=== PATIENT | male | born 2000 | race Caucasian/White ===

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

== ENCOUNTER 2019-06-12 02:12 | Emergency (ER) | payer SELFPAY ==
[~2019-06-12] VITALS: Ht 170 cm; Wt 117.2 kg
[2019-06-12] MEDS ORDERED: LACTATED RINGERS 1,000 ML IV STA (02:35)
--- NOTE | 2019-06-12 02:43 | ED GI ---
General Stated Complaint: FEVER 101.,VOMITING,DIARRHEA Source of Information: Patient History of Present Illness Date Seen by Provider: Jun 12, 2019 Time Seen by Provider: 02:27 Initial Comments PT ARRIVES VIA POV FROM HOME STATES HE BEGAN RUNNING FEVER AROUND NOON--HAS BEEN UP TO 101 HAS NOT TAKEN ANYTHING FOR FEVER BEGAN HAVING NAUSEA/VOMITING/DIARRHEA AROUND 1700 TONIGHT HAS VOMITED X 5 HAS HAD DIARRHEA X 4-5 NO ABDOMINAL PAIN VOIDING A NORMAL AMOUNT--LAST VOID AROUND 1800 HAS BEEN ABLE TO DRINK FLUIDS, HAS HAD DECREASED APPETITE, BUT HAS BEEN ABLE TO EAT C/O MILD SORE THROAT NO SICK CONTACTS OR SUSPICIOUS FOODS NO HISTORY OF GI PROBLEMS PCP: DR. RODRIGUEZ PSYCH: [facility] Allergies and Home Medications Allergies Coded Allergies: No Known Drug Allergies (Unverified , 06/12/19) Home Medications Lactobacillus Acidophilus 1 Each Capsule, 2 EACH PO QID Prescribed by: MARCIA MAYEN on 06/12/19 0505 Ondansetron 4 Mg Tab.rapdis, 4 MG PO Q6H PRN for NAUSEA/VOMITING-1ST LINE Prescribed by: VU DOSHI on 09/18/18 191 Ondansetron 4 Mg Tab.rapdis, 4 MG PO Q4H Prescribed by: MARCIA MAYEN on 06/12/19 0505 Patient Home Medication List Home Medication List Reviewed: Yes Review of Systems Review of Systems Constitutional: see HPI, fever EENTM: See HPI, Throat Pain Respiratory: No Symptoms Reported Cardiovascular: No Symptoms Reported Gastrointestinal: See HPI; Denies Abdominal Pain; Diarrhea, Nausea, Poor Appetite; Denies Poor Fluid Intake; Vomiting Genitourinary: No Symptoms Reported Musculoskeletal: no symptoms reported Skin: no symptoms reported Psychiatric/Neurological: No Symptoms Reported Endocrine: No Symptoms Reported Hematologic/Lymphatic: No Symptoms Reported Past Gzijyqw-Kfmroq-Lvdzyj Hx Past Med/Social Hx: Reviewed and Corrections made Patient Social History Alcohol Use: Occasionally Uses Recreational Drug Use: Yes (THC) Drug of Choice: THC Smoking Status: Current Everyday Smoker (1 PPD) Type Used: Cigarettes 2nd Hand Smoke Exposure: Yes Recent Foreign Travel: No Contact w/Someone Who Travel: No Recent Hopitalizations: No Immunizations Up To Date PED Vaccines UTD: Yes Date of Influenza Vaccine: Jun 05, 2012 Seasonal Allergies Seasonal Allergies: Yes Past Medical History Surgeries: Yes (HERNIA REPAIR) Abdominal Respiratory: Yes (ASTHMA CHILD) Asthma Cardiac: No Neurological: No Genitourinary: No Gastrointestinal: Yes (HERNIA REPAIR) Abdominal Hernia Musculoskeletal: No Endocrine: Yes (HYPOGLYCEMIA; OBESITY) HEENT: No Cancer: No Psychosocial: Yes Anxiety, Bipolar, Depression Integumentary: No Blood Disorders: No Family Medical History No Pertinent Family Hx Physical Exam Vital Signs Vital Signs - First Documented 06/12/19 02:18 Temp 36.7 Pulse 89 Resp 20 B/P (MAP) 173/107 (129) Pulse Ox 98 O2 Delivery Room Air Capillary Refill : Height/Weight/BMI Height: 5'7.00" Weight: 240lbs. oz. 108.597178np; 35.15 BMI Method:Stated General Appearance: no apparent distress, obese, other (SMILING, TALKATIVE, WALKS UPRIGHT AND MOVES WITHOUT DIFFICULTY. 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, no motor/sensory deficits, alert, normal mood/affect, oriented x 3 Skin: normal color, warm/dry, tattoos/piercings (TATTOOS) Progress/Results/Core Measures Results/Orders Lab Results Laboratory Tests Test 06/12/19 02:25 06/12/19 02:45 06/12/19 02:50 Range/Units Group A Streptococcus Screen NEGATIVE NEGATIVE White Blood Count 8.9 4.3-11.0 10^3/uL Red Blood Count 5.09 4.35-5.85 10^6/uL Hemoglobin 15.8 13.3-17.7 G/DL Hematocrit 45 40-54 % Mean Corpuscular Volume 89 80-99 FL Mean Corpuscular Hemoglobin 31 25-34 PG Mean Corpuscular Hemoglobin Concent 35 32-36 G/DL Red Cell Distribution Width 13.1 10.0-14.5 % Platelet Count 174 130-400 10^3/uL Mean Platelet Volume 11.6 H 7.4-10.4 FL Neutrophils (%) (Auto) 65 42-75 % Lymphocytes (%) (Auto) 25 12-44 % Monocytes (%) (Auto) 8 0-12 % Eosinophils (%) (Auto) 3 0-10 % Basophils (%) (Auto) 0 0-10 % Neutrophils # (Auto) 5.8 1.8-7.8 X 10^3 Lymphocytes # (Auto) 2.2 1.0-4.0 X 10^3 Monocytes # (Auto) 0.7 0.0-1.0 X 10^3 Eosinophils # (Auto) 0.2 0.0-0.3 10^3/uL Basophils # (Auto) 0.0 0.0-0.1 10^3/uL Sodium Level 141 135-145 MMOL/L Potassium Level 4.0 3.6-5.0 MMOL/L Chloride Level 107 98-107 MMOL/L Carbon Dioxide Level 23 21-32 MMOL/L Anion Gap 11 5-14 MMOL/L Blood Urea Nitrogen 7 7-18 MG/DL Creatinine 0.96 0.60-1.30 MG/DL Estimat Glomerular Filtration Rate > 60 BUN/Creatinine Ratio 7 Glucose Level 94 70-105 MG/DL Calcium Level 9.5 8.5-10.1 MG/DL Corrected Calcium 9.2 8.5-10.1 MG/DL Magnesium Level 1.9 1.6-2.4 MG/DL Total Bilirubin 0.6 0.1-1.0 MG/DL Aspartate Amino Transf (AST/SGOT) 16 5-34 U/L Alanine Aminotransferase (ALT/SGPT) 22 0-55 U/L Alkaline Phosphatase 64 40-136 U/L Total Protein 6.8 6.4-8.2 GM/DL Albumin 4.4 3.2-4.5 GM/DL Amylase Level 145 H 25-125 U/L Lipase 190 H 8-78 U/L Serum Alcohol < 10 <10 MG/DL Monoscreen NEGATIVE NEGATIVE Urine Color YELLOW Urine Clarity CLEAR Urine pH 7.0 5-9 Urine Specific Siler 1.020 1.016-1.022 Urine Protein NEGATIVE NEGATIVE Urine Glucose (UA) NEGATIVE NEGATIVE Urine Ketones NEGATIVE NEGATIVE Urine Nitrite NEGATIVE NEGATIVE Urine Bilirubin NEGATIVE NEGATIVE Urine Urobilinogen 0.2 < = 1.0 MG/DL Urine Leukocyte Esterase NEGATIVE NEGATIVE Urine RBC (Auto) NEGATIVE NEGATIVE Urine RBC NONE /HPF Urine WBC NONE /HPF Urine Squamous Epithelial Cells RARE /HPF Urine Crystals NONE /LPF Urine Bacteria TRACE /HPF Urine Casts NONE /LPF Urine Mucus NEGATIVE /LPF Urine Culture Indicated NO Urine Opiates Screen NEGATIVE NEGATIVE Urine Oxycodone Screen NEGATIVE NEGATIVE Urine Methadone Screen NEGATIVE NEGATIVE Urine Propoxyphene Screen NEGATIVE NEGATIVE Urine Barbiturates Screen NEGATIVE NEGATIVE Ur Tricyclic Antidepressants Screen NEGATIVE NEGATIVE Urine Phencyclidine Screen NEGATIVE NEGATIVE Urine Amphetamines Screen NEGATIVE NEGATIVE Urine Methamphetamines Screen NEGATIVE NEGATIVE Urine Benzodiazepines Screen NEGATIVE NEGATIVE Urine Cocaine Screen NEGATIVE NEGATIVE Urine Cannabinoids Screen POSITIVE H NEGATIVE Micro Results Microbiology 06/12/19 Influenza Types A,B Antigen (TANA) - Final, Complete My Orders Orders - MARCIA MAYEN DO Rapid Strep A Screen (06/12/19 02:28) Influenza A And B Antigens (06/12/19 02:28) Ed Iv/Invasive Line Start (06/12/19 02:35) Alcohol (06/12/19 02:35) Amylase (06/12/19 02:35) Cbc With Automated Diff (06/12/19 02:35) Comprehensive Metabolic Panel (06/12/19 02:35) Drug Screen Stat (Urine) (06/12/19 02:35) Lipase (06/12/19 02:35) Magnesium (06/12/19 02:35) Ua Culture If Indicated (06/12/19 02:35) Ondansetron Injection (Zofran Injectio (06/12/19 02:45) Lactated Ringers (Lr 1000 Ml Iv Solution (06/12/19 02:35) Ed Iv/Invasive Line Start (06/12/19 02:35) Monotest (06/12/19 02:40) Ct Abdomen/Pelvis W (06/12/19 03:31) Acute Abd Series (06/12/19 03:31) Ed Iv/Invasive Line Start (06/12/19 03:34) Lactated Ringers (Lr 1000 Ml Iv Solution (06/12/19 03:34) Iohexol Injection (Omnipaque 350 Mg/Ml 1 (06/12/19 04:15) Received Contrast (Hold Metformin- Contr (06/12/19 04:15) Ns (Ivpb) (Sodium Chloride 0.9% Ivpb Bag (06/12/19 04:15) Medications Given in ED Current Medications Medications Dose Ordered Sig/Christiana Route Start Time Stop Time Status Last Admin Dose Admin Iohexol 100 ml ONCE ONCE IV 06/12/19 04:15 06/12/19 04:16 DC 06/12/19 04:27 100 ML Lactated Ringer's 1,000 ml @ 0 mls/hr Q0M ONCE IV 06/12/19 03:34 06/12/19 03:35 DC 06/12/19 03:43 1,000 MLS/HR Ondansetron HCl 4 mg ONCE ONCE IVP 06/12/19 02:45 06/12/19 02:46 DC 06/12/19 02:52 4 MG Sodium Chloride 100 ml ONCE ONCE IV 06/12/19 04:15 06/12/19 04:16 DC 06/12/19 04:27 80 ML Vital Signs/I&O 06/12/19 02:18 Temp 36.7 Pulse 89 Resp 20 B/P (MAP) 173/107 (129) Pulse Ox 98 O2 Delivery Room Air Progress Progress Note : Progress Note GIVEN ZOFRAN AND IV FLUIDS--SYMPTOMS IMPROVED. UNEVENTFUL ER STAY NO VOMITING OR DIARRHEA OR FEVER DURING ER STAY Diagnostic Imaging Comments ABDOMEN XRAYS--NO ACUTE PROCESS, PENDING RADIOLOGIST REVIEW CT ABDOMEN/PELVIS--NO ACUTE PROCESS, FATTY LIVER--PER [facility] VIA FAX AT 0501 Reviewed: Reviewed by Me Departure Impression Primary Impression: Gastroenteritis Additional Impression: MILD PANCREATITIS Disposition: 01 HOME, SELF-CARE Condition: Improved Departure-Patient Inst. Referrals: KRISTIN RODRIGUEZ DO (PCP/Family) Primary Care Physician Patient Instructions: [id number], Pancreatitis (DC) Add. Discharge Instructions: CLEAR LIQUIDS--WATER, BROTH, JELLO, GATORADE TOMORROW IF YOU ARE BETTER, ADD BRATS DIET TO CLEAR LIQUIDS--BANANAS, RICE, APPLESAUCE, TOAST, SALTINES TYLENOL AND MOTRIN NEEDED FOR PAIN OR FEVER NO ALCOHOL NO DRUGS FOLLOW UP WITH DR. RODRIGUEZ ON SATURDAY FOR FURTHER CARE RETURN TO ER IF WORSE Scripts Ondansetron (Ondansetron Odt) 4 Mg Tab.rapdis 4 MG PO Q4H for Nausea/Vomiting, #10 TAB Prov: MARCIA MAYEN DO 06/12/19 Lactobacillus Acidophilus (Acidophilus) 1 Each Capsule 2 EACH PO QID, #80 CAP Prov: MARCIA MAYEN DO 06/12/19 MARCIA MAYEN DO Jun 12, 2019 02:43 POS
[2019-06-12] MEDS ORDERED: ONDANSETRON 4 MG/2 ML (SDV) Z0FRAN IVP ONE (02:45)
[2019-06-12 02:52] LABS: BASOPHILS % (AUTO) 0 % (0-10); EOSINOPHILS # (AUTO) 0.2 10^3/uL (0.0-0.3); EOSINOPHILS % (AUTO) 3 % (0-10); HEMATOCRIT 45 % (40-54); HEMOGLOBIN 15.8 G/DL (13.3-17.7); LYMPHOCYTES # (AUTO) 2.2 X 10^3 (1.0-4.0); LYMPHOCYTES % (AUTO) 25 % (12-44); MEAN CORPUSCULAR HEMOGLOBIN 31 PG (25-34); MEAN CORPUSCULAR HGB CONC 35 G/DL (32-36); MEAN CORPUSCULAR VOLUME 89 FL (80-99); MEAN PLATELET VOLUME 11.6 FL (7.4-10.4); MONOCYTES # (AUTO) 0.7 X 10^3 (0.0-1.0); MONOCYTES % (AUTO) 8 % (0-12); NEUTROPHILS # (AUTO) 5.8 X 10^3 (1.8-7.8); NEUTROPHILS % (AUTO) 65 % (42-75); PLATELET COUNT 174 10^3/uL (130-400); RED CELL DISTRIBUTION WIDTH 13.1 % (10.0-14.5); WHITE BLOOD COUNT 8.9 10^3/uL (4.3-11.0)
[2019-06-12 03:10] LABS: BILIRUBIN,URINE NEGATIVE (NEGATIVE); CLARITY,URINE CLEAR; COLOR,URINE YELLOW; GLUCOSE, URINE (UA) NEGATIVE (NEGATIVE); KETONES,URINE NEGATIVE (NEGATIVE); LEUKOCYTE ESTERASE ,URINE NEGATIVE (NEGATIVE); NITRITE,URINE NEGATIVE (NEGATIVE); PROTEIN,URINE NEGATIVE (NEGATIVE)
[2019-06-12 03:16] LABS: ALANINE AMINOTRANSFERASE 22 U/L (0-55); ALBUMIN 4.4 GM/DL (3.2-4.5); ALKALINE PHOSPHATASE 64 U/L (40-136); AMYLASE 145 U/L (25-125); BILIRUBIN,TOTAL 0.6 MG/DL (0.1-1.0); BUN/CREATININE RATIO 7; CALCIUM 9.5 MG/DL (8.5-10.1); CARBON DIOXIDE 23 MMOL/L (21-32); CHLORIDE 107 MMOL/L (98-107); CREATININE SERUM 0.96 MG/DL (0.60-1.30); GFR ESTIMATED > 60; GLUCOSE 94 MG/DL (70-105); LIPASE 190 U/L (8-78); MAGNESIUM 1.9 MG/DL (1.6-2.4); SODIUM 141 MMOL/L (135-145); TOTAL PROTEIN 6.8 GM/DL (6.4-8.2)
[2019-06-12 03:24] LABS: AMPHETAMINE SCREEN, URINE NEGATIVE (NEGATIVE); BACTERIA,URINE TRACE /HPF; BARBITURATE SCREEN URINE NEGATIVE (NEGATIVE); BENZODIAZEPINES SCREEN URINE NEGATIVE (NEGATIVE); CANNABINOID SCREEN, URINE POSITIVE (NEGATIVE); COCAINE SCREEN URINE NEGATIVE (NEGATIVE); METHADONE STAT NEGATIVE (NEGATIVE); METHAMPHETAMINE SCREEN URINE S NEGATIVE (NEGATIVE); OPIATE SCREEN URINE NEGATIVE (NEGATIVE); OXYCODONE STAT NEGATIVE (NEGATIVE); PROPOXYPHENE STAT NEGATIVE (NEGATIVE); SQUAMOUS EPITHELIAL CELL,UR RARE /HPF; TRICYCLIC ANTIDEPRESSANTS SCRE NEGATIVE (NEGATIVE)
[2019-06-12] MEDS ORDERED: LACTATED RINGERS 1,000 ML IV ONE (03:34)
[2019-06-12] MEDS ORDERED: HOLD METFORMIN - RECEIVED CONTRAST 20 ML VIAL IV SCH (04:15)
[2019-06-12] MEDS ORDERED: IOHEXOL 350 MG/ML 100 ML (OMNIPAQUE 350) VIAL IV ONE (04:15)
[2019-06-12] MEDS ORDERED: NS 100 ML (IVPB) BAG IV ONE (04:15)
[2019-06-12] MEDS ORDERED: LACT1CAP8 PO (05:05)
[2019-06-12] MEDS ORDERED: ONDA4TAB11 PO (05:05)
[2019-06-12 05:26] VITALS: BP 129/82
--- NOTE | 2019-06-12 07:29 | Diagnostic Imaging Report ---
PROCEDURE: CT abdomen and pelvis with contrast. TECHNIQUE: Multiple contiguous axial images were obtained through the abdomen and pelvis after administration of intravenous contrast. Auto Exposure Controls were utilized during the CT exam to meet ALARA standards for radiation dose reduction. INDICATION: Nausea and vomiting, diarrhea. COMPARISON: 06/21/2016. FINDINGS: The visualized lung bases are clear. Diffusely decreased density of the liver. Otherwise, the liver is otherwise unremarkable. The spleen is unremarkable. The adrenal glands are unremarkable. The pancreas is unremarkable. The gallbladder is unremarkable. The kidneys and bilateral ureters are unremarkable. No aneurysmal dilatation of the abdominal aorta. The urinary bladder is unremarkable. The appendix is unremarkable. No bowel obstruction or pneumatosis. No significant adenopathy, free air, or free fluid within the abdomen or pelvis. No acute osseous abnormality. IMPRESSION: No acute abnormality. Fatty infiltration of the liver. Agree with preliminary interpretation. Dictated by: Dictated on workstation # [id number]
--- NOTE | 2019-06-12 07:36 | Diagnostic Imaging Report ---
INDICATION: Nausea and vomiting. COMPARISON: 10/08/2016. TECHNIQUE: 3 radiographs of the abdomen and chest dated 06/12/2019. FINDINGS: The cardiac silhouette and pulmonary vasculature are within normal limits. The lungs are clear. No pleural effusion. No pneumothorax. No acute osseous abnormality within the chest. Small amount of gas and stool is noted throughout the colon. No dilated loops of bowel. No differential air-fluid levels. No free air. No suspicious calcifications overlying the renal shadows. No acute osseous abnormality. IMPRESSION: No acute abnormality. Dictated by: Dictated on workstation # [id number]
== END 2019-06-12 05:26 | disposition home or self-care (01) ==
LOC: EDUNIT# 02:12 → ER 02:16
DX: K52.9 Noninfective gastroenteritis and colitis, unspecified (principal); K85.90 Acute pancreatitis without necrosis or infection, unspecified; J45.909 Unspecified asthma, uncomplicated; F41.9 Anxiety disorder, unspecified; F31.9 Bipolar disorder, unspecified; E66.9 Obesity, unspecified; F17.210 Nicotine dependence, cigarettes, uncomplicated; Z68.41 Body mass index [BMI] 40.0-44.9, adult; Z98.890 Other specified postprocedural states
CPT/HCPCS: 36415; 74022; 74177; 80053; 80306; 80320; 81000; 82150; 83690; 83735; 85025; 86308; 87430; 87804

== ENCOUNTER 2020-01-06 20:30 | Emergency (ER) | payer OTHER ==
[~2020-01-06] VITALS: Ht 170.2 cm; Wt 125.7 kg
[~2020-01-06 20:30] MED LIST changes: +LACT1CAP8 PO; -LAMO100T; +LAMO100T5
--- NOTE | 2020-01-06 21:18 | NUR ---
PT REFUSED TO GIVE URINE SAMPLE UPON [facility] ARRIVAL.
--- NOTE | 2020-01-06 21:34 | Diagnostic Imaging Report ---
INDICATION: Left foot pain. EXAMINATION: Three views of the left foot were obtained. FINDINGS: No fracture, dislocation or other acute abnormality. IMPRESSION: Negative left foot. Dictated by: Dictated on workstation # [id number]
--- NOTE | 2020-01-06 21:49 | ED Lower Extremity ---
General Chief Complaint: Lower Extremity Stated Complaint: L FOOT PAIN Nursing Triage Note: PT AMBULATE TO TRIAGE WITH C/O LEFT FOOT PAIN. 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 Nursing Sepsis Screen: No Definite Risk Source: patient Exam Limitations: no limitations History of Present Illness Date Seen by Provider: Jan 06, 2020 Time Seen by Provider: 21:05 Initial Comments This 19-year-old young man presents to the emergency room with left foot injury. He pinched his left foot between a pallet skidder loader and the wall. He is able to ambulate and bear weight but has significant discomfort. There is no obvious injury on exam. Allergies and Home Medications Allergies Coded Allergies: No Known Drug Allergies (Unverified , 06/12/19) Home Medications Lactobacillus Acidophilus 1 Each Capsule, 2 EACH PO QID Prescribed by: MARCIA MAYEN on 06/12/19 0505 Ondansetron 4 Mg Tab.rapdis, 4 MG PO Q6H PRN for NAUSEA/VOMITING-1ST LINE Prescribed by: VU DOSHI on 09/18/181913 Ondansetron 4 Mg Tab.rapdis, 4 MG PO Q4H Prescribed by: MARCIA MAYEN on 06/12/19 0505 Patient Home Medication List Home Medication List Reviewed: Yes Review of Systems Constitutional: no symptoms reported Musculoskeletal: see HPI Skin: no symptoms reported Psychiatric/Neurological: No Symptoms Reported Past Ajladqu-Jfqaqm-Tkdbie Hx Past Med/Social Hx: Reviewed Nursing Past Med/Soc Hx Patient Social History Alcohol Use: Occasionally Uses Alcohol Beverage of Choice: Rum Recreational Drug Use: No Drug of Choice: THC Smoking Status: Current Everyday Smoker Type Used: Cigarettes 2nd Hand Smoke Exposure: Yes Recent Foreign Travel: No Contact w/Someone Who Travel: No Recent Infectious Disease Expo: No Recent Hopitalizations: No Physical Abuse: No Sexual Abuse: No Mistreated: No Fear: No Immunizations Up To Date PED Vaccines UTD: Yes Date of Influenza Vaccine: Jun 05, 2012 Seasonal Allergies Seasonal Allergies: Yes Past Medical History Surgeries: Yes (HERNIA REPAIR) Abdominal Respiratory: Yes (ASTHMA CHILD) Asthma Cardiac: No Neurological: No Genitourinary: No Gastrointestinal: Yes (HERNIA REPAIR) Abdominal Hernia Musculoskeletal: No Endocrine: Yes (HYPOGLYCEMIA; OBESITY) HEENT: No Cancer: No Psychosocial: Yes Anxiety, Bipolar, Depression Integumentary: No Blood Disorders: No Family Medical History No Pertinent Family Hx Physical Exam Vital Signs Vital Signs - First Documented 01/06/20 01/06/20 20:44 21:57 Temp 37.0 Pulse 116 Resp 17 B/P (MAP) 106/76 (86) Pulse Ox 98 O2 Delivery Room Air Capillary Refill : Less Than 3 Seconds Height, Weight, BMI Height: 5'7.00" Weight: 240lbs. oz. 108.704544oa; 43.00 BMI Method:Stated General Appearance: WD/WN, no apparent distress HEENT: normal ENT inspection Respiratory: no respiratory distress Legs: left leg non-tender, left leg normal inspection, left leg normal range of motion, left leg no evidence of injury Knees: left knee non-tender, left knee normal inspection, left knee normal range of motion, left knee no evidence of injury Ankles: left ankle non-tender, left ankle normal inspection, left ankle normal range of motion, left ankle no evidence of injury Feet: left foot normal range of motion, left foot other (Subtle edema and minimal erythema over the dorsum of the foot. There is tenderness in the mid foot, particularly over the first 2 metatarsal regions.) Progress/Results/Core Measures Results/Orders My Orders Orders - KIRSTIN ALMAZAN MD Foot, Left, 3 Views (01/06/20 21:12) Vital Signs/I&O 01/06/20 01/06/20 20:44 21:57 Temp 37.0 Pulse 116 101 Resp 17 19 B/P (MAP) 106/76 (86) 128/74 Pulse Ox 98 O2 Delivery Room Air Room Air Blood Pressure Mean: 86 Progress Progress Note : Progress Note X-ray revealed no bony injury. Diagnostic Imaging Diagonstic Imaging: Xray Plain Films/CT/US/NM/MRI: other (left foot) Comments Left foot x-ray viewed by me and report reviewed. See report below: NAME: LUCI SIM Je MED REC#: [id number] PT STATUS: REG ER : 2000 PHYSICIAN: KIRSTIN ALMAZAN MD ADMIT DATE: 01/06/20/ER Draft Date of Exam:01/06/20 FOOT, LEFT, 3 VIEWS INDICATION: Left foot pain. EXAMINATION: Three views of the left foot were obtained. FINDINGS: No fracture, dislocation or other acute abnormality. IMPRESSION: Negative left foot. Dictated on workstation # [id number] Dict: 01/06/202131 Trans: 01/06/202132 [facility] [id number] Interpreted by: ASHLY TIAN MD Departure Impression Primary Impression: Contusion of left foot Qualified Codes: S90.32XA - Contusion of left foot, initial encounter Disposition: HOME, SELF-CARE Condition: Stable Departure-Patient Inst. Decision time for Depature: 21:43 Referrals: NO,LOCAL PHYSICIAN (PCP/Family) Primary Care Physician Patient Instructions: Contusion (DC) Add. Discharge Instructions: Rest your foot as much as possible until pain resolves. You may ice in 20 minute intervals and elevate to reduce pain and swelling. You may take ibuprofen up to 600 mg every 6 hours as needed and/or Tylenol (acetaminophen) up to 1000 mg every 6 hours as needed. Gradually increase level of activity as pain allows. Wear well cushioned supportive shoes. Return to care if symptoms worsen or if you are not improving as expected over the next few days. All discharge instructions reviewed with patient and/or family. Voiced understanding. KIRSTIN ALMAZAN MD Jan 06, 2020 21:49
[2020-01-06 21:57] VITALS: BP 128/74
== END 2020-01-06 21:53 | disposition home or self-care (01) ==
LOC: EDUNIT# 20:30 → ER 20:34
DX: S90.32XA Contusion of left foot, initial encounter (principal); E66.9 Obesity, unspecified; F17.210 Nicotine dependence, cigarettes, uncomplicated; Z68.41 Body mass index [BMI] 40.0-44.9, adult; W22.8XXA Striking against or struck by other objects, initial encounter; Y92.59 Other trade areas as the place of occurrence of the external cause; Y99.0 Civilian activity done for income or pay
CPT/HCPCS: 73630

== ENCOUNTER 2020-06-23 17:59 | Emergency (ER) | payer SELFPAY ==
[~2020-06-23] VITALS: Ht 170.2 cm; Wt 124.7 kg
[2020-06-23] MEDS ORDERED: LACTATED RINGERS 1,000 ML IV ONE (18:29)
[2020-06-23] MEDS ORDERED: ONDANSETRON 4 MG/2 ML (SDV) Z0FRAN IVP ONE (18:30)
[2020-06-23 18:36] LABS: BASOPHILS # (AUTO) 0.1 10^3/uL (0.0-0.1); BASOPHILS % (AUTO) 1 % (0-10); EOSINOPHILS # (AUTO) 0.2 10^3/uL (0.0-0.3); EOSINOPHILS % (AUTO) 2 % (0-10); HEMATOCRIT 49 % (40-54); HEMOGLOBIN 16.5 g/dL (13.3-17.7); LYMPHOCYTES # (AUTO) 2.5 10^3/uL (1.0-4.0); LYMPHOCYTES % (AUTO) 23 % (12-44); MEAN CORPUSCULAR HEMOGLOBIN 31 pg (25-34); MEAN CORPUSCULAR HGB CONC 34 g/dL (32-36); MEAN CORPUSCULAR VOLUME 91 fL (80-99); MEAN PLATELET VOLUME 11.6 fL (9.0-12.2); MONOCYTES # (AUTO) 0.8 10^3/uL (0.0-1.0); MONOCYTES % (AUTO) 7 % (0-12); NEUTROPHILS # (AUTO) 7.3 10^3/uL (1.8-7.8); NEUTROPHILS % (AUTO) 67 % (42-75); PLATELET COUNT 188 10^3/uL (130-400); WHITE BLOOD COUNT 10.9 10^3/uL (4.3-11.0)
--- NOTE | 2020-06-23 18:42 | ED Abdominal Pain ---
General Chief Complaint: Abdominal/GI Problems Stated Complaint: ABD PAIN;VOMITING Nursing Triage Note: PT AMB TO RM 4 WITH COMPLAINT OF ABD PAIN, N/V. STATES PAIN STARTED 4 DAYS AGO AND N/V STARTED YESTERDAY. Sepsis Screen: No Definite Risk Source of Information: Patient History of Present Illness Date Seen by Provider: Jun 23, 2020 Time Seen by Provider: 18:20 Initial Comments PT ARRIVES VIA POV FROM WORK AT [employer] --LEFT WORK EARLY C/O GENERALIZED ABDOMINAL PAIN X 4 DAYS. PAIN IS WORSE WITH MOVEMENTS, NOTHING IMPROVES PAIN PAIN RADIATES AROUND BOTH SIDES OF BACK C/O NAUSEA AND VOMITING SINCE YESTERDAY--VOMITED X 1 TODAY, AFTER EATING A CHEESE STICK AROUND 1700 NO DIARRHEA OR CONSTIPATION, HAD A NORMAL BM AROUND 1400 TODAY. STATES HE TOOK KAOPECTATE YESTERDAY FOR THE ABDOMINAL PAIN--WAS NOT HAVING DIARRHEA--DID NOT KNOW THAT KAOPECTATE WAS FOR DIARRHEA. NO PROBLEMS URINATING, AND VOIDING A NORMAL AMOUNT. LAST VOID WAS JUST PRIOR TO ARRIVAL NO FEVER/SWEATS/CHILLS HAS NOT HAD ANYTHING TO DRINK TODAY, ATE YESTERDAY AROUND 2000, HAD A "SNACK" AROUND 2300 LAST PM, AND THEN THE ONLY THING HE ATE TODAY WAS THE CHEESE STICK AROUND 1700, WHICH HE THREW UP . STATES HE HAS HAD ABDOMINAL PAIN AND NAUSEA/VOMITING OFF AND ON FOR THE LAST YEAR STATES HE HAS HAD PANCREATITIS ABOUT A YEAR AGO STATES HE OCCASIONALLY DRINKS--USUALLY ABOUT 4 BEERS WHEN HE DOES DRINK. LAST ETOH WAS 3-4 DAYS AGO. SMOKES MARIJUANA ON REGULAR BASIS SMOKES 1/2 PPD OF CIGARETTES ONLY ABDOMINAL SURGERY HAS BEEN RIGHT HYDROCOELE/HERNIA REPAIR A SMALL CHILD NO KNOWN SICK CONTACTS OR SUSPICIOUS FOODS LIVES WITH GIRLFRIEND AND 2 ROOM MATES--THEY ARE NOT ILL. PCP: JORGE Allergies and Home Medications Allergies Coded Allergies: No Known Drug Allergies (Unverified , 06/12/19) Home Medications Dicyclomine HCl 20 Mg Tablet, 20 MG PO Q6H Prescribed by: MARCIA MAYEN on 06/23/202030 Hyoscyamine Sulfate 0.125 Mg Tab.subl, 0.25 MG SL Q4H Prescribed by: MARCIA MAYEN on 06/23/202030 Lactobacillus Acidophilus 1 Each Capsule, 2 EACH PO QID Prescribed by: MARCIA MAYEN on 06/12/19504 Ondansetron 4 Mg Tab.rapdis, 4 MG PO Q6H PRN for NAUSEA/VOMITING-1ST LINE Prescribed by: VU DOSHI on 09/18/181913 Ondansetron 4 Mg Tab.rapdis, 4 MG PO Q4H Prescribed by: MARCIA MAYEN on 06/12/19504 Ondansetron 4 Mg Tab.rapdis, 4 MG PO Q4H Prescribed by: MARCIA MAYEN on 06/23/202030 Pantoprazole Sodium 40 Mg Tablet.dr, 40 MG PO DAILY Prescribed by: MARCIA MAYEN on 06/23/202031 Patient Home Medication List Home Medication List Reviewed: Yes Review of Systems Review of Systems Constitutional: no symptoms reported Respiratory: No Symptoms Reported Cardiovascular: No Symptoms Reported Gastrointestinal: See HPI, Abdominal Pain; Denies Constipated; Nausea, Poor Appetite, Poor Fluid Intake, Vomiting Genitourinary: No Symptoms Reported Musculoskeletal: see HPI, back pain Skin: no symptoms reported Psychiatric/Neurological: No Symptoms Reported Endocrine: No Symptoms Reported Hematologic/Lymphatic: No Symptoms Reported Past Pqydvpm-[id number]-Uonyzq Hx Past Med/Social Hx: Reviewed and Corrections made Patient Social History Alcohol Use: Occasionally Uses Number of Drinks Today: DD Alcohol Beverage of Choice: Beer, Rum Recreational Drug Use: Yes (THC) Drug of Choice: THC Smoking Status: Current Everyday Smoker (1/2 PPD) Type Used: Cigarettes 2nd Hand Smoke Exposure: Yes Recent Foreign Travel: No Contact w/Someone Who Travel: No Recent Infectious Disease Expo: No Recent Hopitalizations: No Immunizations Up To Date PED Vaccines UTD: Yes Date of Influenza Vaccine: Jun 05, 2012 Seasonal Allergies Seasonal Allergies: Yes Past Medical History Surgeries: Yes (RIGHT HYDROCOELE/HERNIA REPAIR SMALL CHILD) Abdominal Respiratory: Yes (ASTHMA CHILD) Asthma Cardiac: No Neurological: No Genitourinary: No Gastrointestinal: Yes (RIGHT HYDROCOELE/HERNIA REPAIR SMALL CHILD) Abdominal Hernia Musculoskeletal: No Endocrine: Yes (HYPOGLYCEMIA; OBESITY) HEENT: No Cancer: No Psychosocial: Yes Anxiety, Bipolar, Depression Integumentary: No Blood Disorders: No Family Medical History No Pertinent Family Hx Physical Exam Vital Signs Vital Signs - First Documented 06/23/20 18:21 Temp 36.6 Pulse 74 Resp 16 B/P (MAP) 141/70 (93) Pulse Ox 98 O2 Delivery Room Air Capillary Refill : Less Than 3 Seconds Height/Weight/BMI Height: 5'7.00" Weight: 240lbs. oz. 108.307767sh; 43.00 BMI Method:Stated General Appearance: WD/WN, no apparent distress, obese, other (WALKS UPRIGHT AND MOVES WITHOUT DIFFICULTY. 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2 fL Immature Granulocyte % (Auto) 1 % Neutrophils (%) (Auto) 67 42-75 % Lymphocytes (%) (Auto) 23 12-44 % Monocytes (%) (Auto) 7 0-12 % Eosinophils (%) (Auto) 2 0-10 % Basophils (%) (Auto) 1 0-10 % Neutrophils # (Auto) 7.3 1.8-7.8 10^3/uL Lymphocytes # (Auto) 2.5 1.0-4.0 10^3/uL Monocytes # (Auto) 0.8 0.0-1.0 10^3/uL Eosinophils # (Auto) 0.2 0.0-0.3 10^3/uL Basophils # (Auto) 0.1 0.0-0.1 10^3/uL Immature Granulocyte # (Auto) 0.1 0.0-0.1 10^3/uL Prothrombin Time 13.6 12.2-14.7 SEC INR Comment 1.0 0.8-1.4 Activated Partial Thromboplast Time 27 24-35 SEC Sodium Level 143 135-145 MMOL/L Potassium Level 4.0 3.6-5.0 MMOL/L Chloride Level 107 98-107 MMOL/L Carbon Dioxide Level 26 21-32 MMOL/L Anion Gap 10 5-14 MMOL/L Blood Urea Nitrogen 11 7-18 MG/DL Creatinine 1.06 0.60-1.30 MG/DL Estimat Glomerular Filtration Rate > 60 BUN/Creatinine Ratio 10 Glucose Level 99 70-105 MG/DL Calcium Level 9.8 8.5-10.1 MG/DL Corrected Calcium 8.5-10.1 MG/DL Magnesium Level 2.1 1.6-2.4 MG/DL Total Bilirubin 0.6 0.1-1.0 MG/DL Aspartate Amino Transf (AST/SGOT) 21 5-34 U/L Alanine Aminotransferase (ALT/SGPT) 30 0-55 U/L Alkaline Phosphatase 71 40-136 U/L Total Protein 7.3 6.4-8.2 GM/DL Albumin 4.6 H 3.2-4.5 GM/DL Amylase Level 63 25-125 U/L Lipase 25 8-78 U/L Serum Alcohol < 10 <10 MG/DL Urine Color YELLOW Urine Clarity CLEAR Urine pH 5.5 5-9 Urine Specific [place] >=1.030 1.016-1.022 Urine Protein NEGATIVE NEGATIVE Urine Glucose (UA) NEGATIVE NEGATIVE Urine Ketones NEGATIVE NEGATIVE Urine Nitrite NEGATIVE NEGATIVE Urine Bilirubin NEGATIVE NEGATIVE Urine Urobilinogen 1.0 < = 1.0 MG/DL Urine Leukocyte Esterase NEGATIVE NEGATIVE Urine RBC (Auto) NEGATIVE NEGATIVE Urine RBC NONE /HPF Urine WBC NONE /HPF Urine Squamous Epithelial Cells NONE /HPF Urine Crystals NONE /LPF Urine Bacteria NEGATIVE /HPF Urine Casts NONE /LPF Urine Mucus LARGE H /LPF Urine Culture Indicated NO Urine Opiates Screen NEGATIVE NEGATIVE Urine Oxycodone Screen NEGATIVE NEGATIVE Urine Methadone Screen NEGATIVE NEGATIVE Urine Propoxyphene Screen NEGATIVE NEGATIVE Urine Barbiturates Screen NEGATIVE NEGATIVE Ur Tricyclic Antidepressants Screen NEGATIVE NEGATIVE Urine Phencyclidine Screen NEGATIVE NEGATIVE Urine Amphetamines Screen NEGATIVE NEGATIVE Urine Methamphetamines Screen NEGATIVE NEGATIVE Urine Benzodiazepines Screen NEGATIVE NEGATIVE Urine Cocaine Screen NEGATIVE NEGATIVE Urine Cannabinoids Screen POSITIVE H NEGATIVE My Orders Orders - MARCIA MAYEN DO Ed Iv/Invasive Line Start (06/23/20 18:29) Monitor-Rhythm Ecg Trace Only (06/23/20 18:29) Alcohol (06/23/20 18:29) Amylase (06/23/20 18:29) Cbc With Automated Diff (06/23/20 18:29) Comprehensive Metabolic Panel (06/23/20 18:29) Drug Screen Stat (Urine) (06/23/20 18:) Lipase (06/23/20:) Magnesium (06/23/20:) Protime With Inr (06/23/20 18:) Partial Thromboplastin Time (06/23/20 18:29) Ua Culture If Indicated (06/23/20 18:29) Ondansetron Injection (Zofran Injectio (06/23/20 18:30) Ed Iv/Invasive Line Start (06/23/20 18:29) Lactated Ringers (Lr 1000 Ml Iv Solution (06/23/20 18:29) Ct Abd/Pelv W (Appendicitis) (06/23/20 19:16) Acute Abd Series (06/23/20 19:16) Iohexol Injection (Omnipaque 350 Mg/Ml 1 (06/23/20 19:30) Received Contrast (Hold Metformin- Contr (06/23/20 19:30) Ns (Ivpb) (Sodium Chloride 0.9% Ivpb Bag (06/23/20 19:30) Hyoscyamine Sl Tablet (Levsin Sl Tablet) (06/23/20 20:15) Ketorolac Injection (Toradol Injection) (06/23/20 20:15) Medications Given in ED Current Medications Medications Dose Ordered Sig/Christiana Route Start Time Stop Time Status Last Admin Dose Admin Hyoscyamine Sulfate 0.25 mg ONCE ONCE PO 06/23/20 20:15 06/23/20 20:16 DC 06/23/20 20:30 0.25 MG Iohexol 100 ml ONCE ONCE IV 06/23/20 19:30 06/23/20 19:31 DC 06/23/20 19:54 100 ML Ketorolac Tromethamine 30 mg ONCE ONCE IVP 06/23/20 20:15 06/23/20 20:16 DC 06/23/20 20:30 30 MG Lactated Ringer's 1,000 ml @ 0 mls/hr Q0M ONCE IV 06/23/20 18:29 06/23/20 18:31 DC 06/23/20 18:40 0 MLS/HR Ondansetron HCl 4 mg ONCE ONCE IVP 06/23/20 18:30 06/23/20 18:31 DC 06/23/20 18:40 4 MG Sodium Chloride 100 ml ONCE ONCE IV 06/23/20 19:30 06/23/20 19:31 DC 06/23/20 19:55 80 ML Vital Signs/I&O 06/23/20 06/23/20 18:21 20:37 Temp 36.6 36.6 Pulse 74 96 Resp 16 16 B/P (MAP) 141/70 (93) 152/75 (93) Pulse Ox 98 97 O2 Delivery Room Air Room Air 06/24/20 00:00 Intake Total 1000 ml Balance 1000 ml Blood Pressure Mean: 93 Progress Progress Note : Progress Note GIVEN IV FLUIDS AND ZOFRAN--NO VOMITING DURING ER STAY, AND NAUSEA IMPROVED GIVEN TORADOL AND LEVSIN WITH IMPROVEMENT IN ABDOMINAL PAIN AT DISMISSAL Diagnostic Imaging Comments CT ABDOMEN/PELVIS--PER RADIOLOGIST REPORT AT 2013 FINDINGS: LOWER THORAX: Clear. LIVER: Likely minimal fatty infiltration along the falciform ligament. GALLBLADDER: Slightly contracted, otherwise unremarkable. No bile ductal dilatation. SPLEEN: Unremarkable. PANCREAS: Unremarkable. ADRENAL GLANDS: Unremarkable. KIDNEYS: Normal configuration. No calcification or obstruction. ABDOMINAL AORTA: Unremarkable, nonaneurysmal. GASTROINTESTINAL TRACT: Stomach mildly distended with liquid. No small bowel obstruction. Colon is largely collapsed. Normal appendix is present in the right lower quadrant. No abdominal ascites or free air. URINARY BLADDER: Relatively decompressed, grossly unremarkable. REPRODUCTIVE: Prostate gland unremarkable. OSSEOUS STRUCTURES: No acute abnormality. OTHER: None. IMPRESSION: 1. Negative for acute abnormality of the abdomen or pelvis. ABDOMEN XRAYS--NO ACUTE PROCESS, PER RADIOLOGIST REPORT AT 2013 Reviewed: Reviewed by Me Departure Impression Primary Impression: Abdominal pain Additional Impressions: Nausea and vomiting Marijuana use Disposition: HOME, SELF-CARE Condition: Improved Departure-Patient Inst. Referrals: [facility] Patient Instructions: Marijuana Use and Addiction (DC), Nausea and Vomiting, Adult (DC), Severe Abdominal Pain, Adult (DC) Add. Discharge Instructions: NO MARIJUANA!! NO ALCOHOL!! CLEAR LIQUIDS--WATER, BROTH, JELLO, GATORADE TOMORROW IF YOU ARE BETTER, ADD BRATS DIET TO CLEAR LIQUIDS--BANANAS, RICE, APPLESAUCE, TOAST, SALTINES FOLLOW UP WITH [facility] IN 2-3 DAYS IF NO BETTER, RETURN TO ER IF WORSE. All discharge instructions reviewed with patient and/or family. Voiced understanding. Scripts Pantoprazole Sodium (Protonix) 40 Mg Tablet.dr 40 MG PO DAILY, #15 TAB Prov: MARCIA MAYEN DO 06/23/20 Dicyclomine HCl (Dicyclomine HCl) 20 Mg Tablet 20 MG PO Q6H for Abdominal Pain, #20 TAB Prov: MARCIA MAYEN DO 06/23/20 Hyoscyamine Sulfate (Levsin-Sl) 0.125 Mg Tab.subl 0.25 MG SL Q4H, #10 TAB Prov: MARCIA MAYEN DO 06/23/20 Ondansetron (Ondansetron Odt) 4 Mg Tab.rapdis 4 MG PO Q4H for Nausea/Vomiting, #10 TAB Prov: MARCIA MAYEN DO 06/23/20 MARCIA MAYEN DO Jun 23, 2020 18:42
[2020-06-23 18:49] LABS: ALBUMIN 4.6 GM/DL (3.2-4.5); CHLORIDE 107 MMOL/L (98-107); SODIUM 143 MMOL/L (135-145)
[2020-06-23 18:51] LABS: CALCIUM 9.8 MG/DL (8.5-10.1)
[2020-06-23 18:52] LABS: AMYLASE 63 U/L (25-125); GLUCOSE 99 MG/DL (70-105); PROTHROMBIN TIME PATIENT 13.6 SEC (12.2-14.7); TOTAL PROTEIN 7.3 GM/DL (6.4-8.2)
[2020-06-23 18:53] LABS: CARBON DIOXIDE 26 MMOL/L (21-32)
[2020-06-23 18:54] LABS: BILIRUBIN,TOTAL 0.6 MG/DL (0.1-1.0)
[2020-06-23 18:55] LABS: ALKALINE PHOSPHATASE 71 U/L (40-136); CREATININE SERUM 1.06 MG/DL (0.60-1.30); GFR ESTIMATED > 60
[2020-06-23 18:56] LABS: BUN/CREATININE RATIO 10
[2020-06-23 18:58] LABS: ALANINE AMINOTRANSFERASE 30 U/L (0-55)
[2020-06-23 18:59] LABS: MAGNESIUM 2.1 MG/DL (1.6-2.4)
[2020-06-23 19:00] LABS: LIPASE 25 U/L (8-78)
[2020-06-23 19:02] LABS: BILIRUBIN,URINE NEGATIVE (NEGATIVE); CLARITY,URINE CLEAR; COLOR,URINE YELLOW; GLUCOSE, URINE (UA) NEGATIVE (NEGATIVE); KETONES,URINE NEGATIVE (NEGATIVE); LEUKOCYTE ESTERASE ,URINE NEGATIVE (NEGATIVE); NITRITE,URINE NEGATIVE (NEGATIVE); PH,URINE 5.5 (5-9); PROTEIN,URINE NEGATIVE (NEGATIVE)
[2020-06-23 19:11] LABS: BACTERIA,URINE NEGATIVE /HPF
[2020-06-23 19:25] LABS: AMPHETAMINE SCREEN, URINE NEGATIVE (NEGATIVE); BARBITURATE SCREEN URINE NEGATIVE (NEGATIVE); BENZODIAZEPINES SCREEN URINE NEGATIVE (NEGATIVE); CANNABINOID SCREEN, URINE POSITIVE (NEGATIVE); COCAINE SCREEN URINE NEGATIVE (NEGATIVE); METHADONE STAT NEGATIVE (NEGATIVE); METHAMPHETAMINE SCREEN URINE S NEGATIVE (NEGATIVE); OPIATE SCREEN URINE NEGATIVE (NEGATIVE); OXYCODONE STAT NEGATIVE (NEGATIVE); PROPOXYPHENE STAT NEGATIVE (NEGATIVE); TRICYCLIC ANTIDEPRESSANTS SCRE NEGATIVE (NEGATIVE)
[2020-06-23] MEDS ORDERED: NS 100 ML (IVPB) BAG IV ONE (19:30)
[2020-06-23] MEDS ORDERED: IOHEXOL 350 MG/ML 100 ML (OMNIPAQUE 350) VIAL IV ONE (19:30)
[2020-06-23] MEDS ORDERED: HOLD METFORMIN - RECEIVED CONTRAST 20 ML VIAL IV SCH (19:30)
--- NOTE | 2020-06-23 20:04 | Diagnostic Imaging Report ---
INDICATION: Abdominal pain with vomiting since yesterday EXAMINATION: Abdomen series from 06/23/2020. FINDINGS: Frontal chest with upright and supine imaging of the abdomen Heart and pulmonary vasculature normal. Lungs and pleural spaces clear. No free air appreciated beneath the diaphragm. Scattered air and stool seen throughout the colon to the rectosigmoid. There are no dilated loops of bowel. IMPRESSION: 1. Negative chest 2. Nonobstructive bowel gas pattern Dictated by: Dictated on workstation # [id number]
--- NOTE | 2020-06-23 20:12 | Diagnostic Imaging Report ---
PROCEDURE: CT abdomen and pelvis with contrast, rule out appendicitis. TECHNIQUE: Multiple contiguous axial images were obtained through the abdomen and pelvis after the administration of intravenous contrast. All CT scans use one or more of the following dose optimizing techniques: automated exposure control, MA and/or KvP adjustment based on patient size and exam type or iterative reconstruction. INDICATION: Abdominal pain with vomiting since yesterday. CORRELATION STUDY: 06/12/2019. FINDINGS: LOWER THORAX: Clear. LIVER: Likely minimal fatty infiltration along the falciform ligament. GALLBLADDER: Slightly contracted, otherwise unremarkable. No bile ductal dilatation. SPLEEN: Unremarkable. PANCREAS: Unremarkable. ADRENAL GLANDS: Unremarkable. KIDNEYS: Normal configuration. No calcification or obstruction. ABDOMINAL AORTA: Unremarkable, nonaneurysmal. GASTROINTESTINAL TRACT: Stomach mildly distended with liquid. No small bowel obstruction. Colon is largely collapsed. Normal appendix is present in the right lower quadrant. No abdominal ascites or free air. URINARY BLADDER: Relatively decompressed, grossly unremarkable. REPRODUCTIVE: Prostate gland unremarkable. OSSEOUS STRUCTURES: No acute abnormality. OTHER: None. IMPRESSION: 1. Negative for acute abnormality of the abdomen or pelvis. Dictated by: Dictated on workstation # [id number]
[2020-06-23] MEDS ORDERED: KETOROLAC 30 MG/ML VIAL IVP ONE (20:15)
[2020-06-23] MEDS ORDERED: HYOSCYAMINE 0.125 MG (LEVSIN) TAB PO ONE (20:15)
[2020-06-23] MEDS ORDERED: ONDA4TAB11 PO (20:31)
[2020-06-23] MEDS ORDERED: DICY20TA10 PO (20:31)
[2020-06-23] MEDS ORDERED: HYOS0.1283 SL (20:31)
[2020-06-23] MEDS ORDERED: PANT40TA2 PO (20:32)
[2020-06-23 20:37] VITALS: BP 152/75
== END 2020-06-23 20:45 | disposition home or self-care (01) ==
LOC: EDUNIT# 17:59 → ER 18:00
DX: R10.84 Generalized abdominal pain (principal); R11.2 Nausea with vomiting, unspecified; F12.90 Cannabis use, unspecified, uncomplicated; E66.9 Obesity, unspecified; F17.210 Nicotine dependence, cigarettes, uncomplicated; Z68.41 Body mass index [BMI] 40.0-44.9, adult
CPT/HCPCS: 74022; 74177; 80053; 80306; 81000; 82150; 83690; 83735; 85025; 85610; 85730; 99284; G0480; 36415; 80320; 96361; 96374; 96375

== ENCOUNTER 2022-02-13 15:27 | Emergency (ER) | payer SELFPAY ==
[~2022-02-13] VITALS: Ht 170 cm; Wt 125.0 kg
[~2022-02-13 15:27] MED LIST changes: +DICY20TA PO; +DOXY-311 PO; -DOXY100C42 PO; +ESCI-2; -ESCI10TA55; +HYOS0.1283 SL; +PANT40TA2 PO
[2022-02-13 16:54] LABS: BASOPHILS # (AUTO) 0.1 10^3/uL (0.0-0.1); BASOPHILS % (AUTO) 1 % (0-10); EOSINOPHILS # (AUTO) 0.7 10^3/uL (0.0-0.3); EOSINOPHILS % (AUTO) 6 % (0-10); HEMATOCRIT 46 % (40-54); HEMOGLOBIN 15.8 g/dL (13.3-17.7); LYMPHOCYTES # (AUTO) 3.1 10^3/uL (1.0-4.0); LYMPHOCYTES % (AUTO) 31 % (12-44); MEAN CORPUSCULAR HEMOGLOBIN 30 pg (25-34); MEAN CORPUSCULAR HGB CONC 35 g/dL (32-36); MEAN CORPUSCULAR VOLUME 87 fL (80-99); MEAN PLATELET VOLUME 12.3 fL (9.0-12.2); MONOCYTES # (AUTO) 0.7 10^3/uL (0.0-1.0); MONOCYTES % (AUTO) 7 % (0-12); NEUTROPHILS # (AUTO) 5.6 10^3/uL (1.8-7.8); NEUTROPHILS % (AUTO) 55 % (42-75); PLATELET COUNT 198 10^3/uL (130-400); WHITE BLOOD COUNT 10.2 10^3/uL (4.3-11.0)
[2022-02-13 17:00] LABS: BILIRUBIN,URINE NEGATIVE (NEGATIVE); CLARITY,URINE CLEAR; COLOR,URINE YELLOW; GLUCOSE, URINE (UA) NEGATIVE (NEGATIVE); KETONES,URINE NEGATIVE (NEGATIVE); LEUKOCYTE ESTERASE ,URINE NEGATIVE (NEGATIVE); NITRITE,URINE NEGATIVE (NEGATIVE); PH,URINE 5.5 (5-9); PROTEIN,URINE NEGATIVE (NEGATIVE)
[2022-02-13 17:08] LABS: BACTERIA,URINE TRACE /HPF; SQUAMOUS EPITHELIAL CELL,UR RARE /HPF; WBC,URINE 0-2 /HPF
[2022-02-13 17:08] LABS: CHLORIDE 106 MMOL/L (98-107)
[2022-02-13 17:09] LABS: ALBUMIN 4.6 GM/DL (3.2-4.5); POTASSIUM 3.6 MMOL/L (3.6-5.0); SODIUM 141 MMOL/L (135-145)
[2022-02-13 17:10] LABS: CALCIUM 9.7 MG/DL (8.5-10.1)
[2022-02-13 17:11] LABS: GLUCOSE 100 MG/DL (70-105); TOTAL PROTEIN 7.3 GM/DL (6.4-8.2)
[2022-02-13 17:12] LABS: CARBON DIOXIDE 24 MMOL/L (21-32)
[2022-02-13 17:13] LABS: BILIRUBIN,TOTAL 0.8 MG/DL (0.1-1.0)
[2022-02-13 17:14] LABS: AMPHETAMINE SCREEN, URINE NEGATIVE (NEGATIVE); BARBITURATE SCREEN URINE NEGATIVE (NEGATIVE); BENZODIAZEPINES SCREEN URINE POSITIVE (NEGATIVE); CANNABINOID SCREEN, URINE POSITIVE (NEGATIVE); COCAINE SCREEN URINE NEGATIVE (NEGATIVE); METHADONE STAT NEGATIVE (NEGATIVE); OPIATE SCREEN URINE POSITIVE (NEGATIVE); OXYCODONE STAT NEGATIVE (NEGATIVE); PROPOXYPHENE STAT NEGATIVE (NEGATIVE); TRICYCLIC ANTIDEPRESSANTS SCRE NEGATIVE (NEGATIVE)
[2022-02-13 17:15] LABS: ALKALINE PHOSPHATASE 66 U/L (40-136); CREATININE SERUM 0.93 MG/DL (0.60-1.30); GFR ESTIMATED 119
[2022-02-13 17:17] LABS: BUN/CREATININE RATIO 9
[2022-02-13 17:18] LABS: ALANINE AMINOTRANSFERASE 61 U/L (0-55); SALICYLATE < 5.0 MG/DL (5.0-20.0)
[2022-02-13 17:20] LABS: ACETAMINOPHEN < 10 UG/ML (10-30)
--- NOTE | 2022-02-13 17:49 | ED General ---
General Chief Complaint: Psych/Social Disorder Stated Complaint: PSYCH EVAL Nursing Triage Note: PT AMB TO ED BY POV WITH C/O SI. PT REPORTS HX DEPRESSION, HAS NOT BEEN TAKING LATUDA BECAUSE HE CANNOT AFFORD IT. PT REPORTS SUICIDAL THOUGHTS HAVE BEEN WORSE OVER THE LAST FEW DAYS, DENIES THOUGHTS OF KILLING HIMSELF AT THIS TIME. HX OF SELF HARM 2.5-3 YRS AGO. STATES HE WOULD LIKE INPATIENT TREATMENT TO "MAKE SURE HE STAYS SAFE." Source of Information: Patient Exam Limitations: No Limitations History of Present Illness Date Seen by Provider: Feb 13, 2022 Time Seen by Provider: 17:48 Initial Comments Patient is a 21-year-old male with a history of depression who presents the ED for suicidal thoughts. Suicidal thoughts started last night. Reports wanting to swallow pills. Some passive thoughts today. Patient has been on Latuda for his depression in the past but cannot afford the medication. Currently on Vistaril. Does see a psychiatrist at [facility] and a therapist. He states he has been depressed for several years. Patient denies of any alcohol use or drug use besides marijuana. Denies any chest pain, abdominal pain, vomiting, diarrhea, headache, dizziness. Allergies and Home Medications Allergies Coded Allergies: No Known Drug Allergies (Unverified , 06/12/19) Patient Home Medication List Home Medication List Reviewed: Yes Dicyclomine HCl (Dicyclomine HCl) 20 Mg Tablet, 20 MG PO Q6H Prescribed by: MARCIA MAYEN on 06/23/202030 Escitalopram Oxalate (Escitalopram Oxalate) 10 Mg Tablet, (Reported) Entered as Reported by: JULIUS POOLE on 05/09/18 160 Hyoscyamine Sulfate (Levsin-Sl) 0.125 Mg Tab.subl, 0.25 MG SL Q4H Prescribed by: MARCIA MAYEN on 06/23/202030 Lactobacillus Acidophilus (Acidophilus) 1 Each Capsule, 2 EACH PO QID Prescribed by: MARCIA MAYEN on 06/12/19 0505 Lamotrigine (Lamotrigine) 100 Mg Tablet, (Reported) Entered as Reported by: JULIUS POOLE on 05/09/18 1605 Ondansetron (Ondansetron Odt) 4 Mg Tab.rapdis, 4 MG PO Q6H PRN for NAUSEA/VOMITING-1ST LINE Prescribed by: VU DOSHI on 09/18/181913 Ondansetron (Ondansetron Odt) 4 Mg Tab.rapdis, 4 MG PO Q4H Prescribed by: MARCIA MAYEN on 06/12/19 050 Ondansetron (Ondansetron Odt) 4 Mg Tab.rapdis, 4 MG PO Q4H Prescribed by: MARCIA MAYEN on 06/23/202030 Pantoprazole Sodium (Protonix) 40 Mg Tablet.dr, 40 MG PO DAILY Prescribed by: MARCIA MAYEN on 06/23/202031 Review of Systems Review of Systems Constitutional: No chills, No diaphoresis, No fever, No weakness EENTM: No hearing loss, No ear pain, No blurred vision Respiratory: No cough, No dyspnea on exertion Cardiovascular: No chest pain Gastrointestinal: No abdominal pain, No diarrhea, No nausea, No vomiting Genitourinary: No no symptoms reported, No decreased output, No frequency, No hematuria Musculoskeletal: No back pain, No joint pain Skin: No change in color, No change in hair/nails All Other Systems Reviewed Negative Unless Noted: Yes Past Xqrrzgx-Byrhqw-Xupkpp Hx Patient Social History Tobacco Use?: Yes Tobacco type used: Cigarettes Smoking Status: Current Everyday Smoker Use of E-Cig and/or Vaping dev: Yes E-Cig or Vaping type used: Nicotine, Marijuana Substance use?: Yes Substance type: Opiates/Opioids, Marijuana Additional substance use comme: MARIJUANA DAILY, OPIATES OCC Substance frequency: Daily Alcohol Use?: Yes Alcohol type: Hard Liquor Alcohol Frequency: Once in a while Pt feels they are or have been: No Immunizations Up To Date PED Vaccines UTD: Yes Influenza Vaccine Up-to-Date: No; Not Current First/Initial COVID19 Vaccinat: 2020 Seasonal Allergies Seasonal Allergies: Yes Past Medical History Surgery/Hospitalization HX: BIPOLAR DEPRESSION, ANXIETY Surgeries: Yes (RIGHT HYDROCOELE/HERNIA REPAIR SMALL CHILD) Abdominal Respiratory: Yes (ASTHMA CHILD) Asthma Cardiac: No Neurological: No Genitourinary: No Gastrointestinal: Yes (RIGHT HYDROCOELE/HERNIA REPAIR SMALL CHILD) Abdominal Hernia Musculoskeletal: No Endocrine: Yes (HYPOGLYCEMIA; OBESITY) HEENT: No Cancer: No Psychosocial: Yes Anxiety, Bipolar, Depression Integumentary: No Blood Disorders: No Family Medical History No Pertinent Family Hx Physical Exam Vital Signs Vital Signs - First Documented 02/13/22 15:54 Temp 36.8 Pulse 94 Resp 16 B/P (MAP) 137/83 (101) Pulse Ox 97 O2 Delivery Room Air Capillary Refill : Less Than 3 Seconds Height, Weight, BMI Height: 5'7.00" Weight: 240lbs. oz. [id number]; 43.00 BMI Method:Stated General Appearance: No Apparent Distress, WD/WN Eyes: Bilateral Eye Normal Inspection, Bilateral Eye PERRL, Bilateral Eye EOMI HEENT: PERRL/EOMI, TMs Normal, Normal ENT Inspection, Pharynx Normal Neck: Full Range of Motion, Normal Inspection, Non Tender, Supple Respiratory: Chest Non Tender, Lungs Clear, Normal Breath Sounds, No Accessory Muscle Use, No Respiratory Distress Cardiovascular: Regular Rate, Rhythm, No Edema, No Gallop, No JVD, No Murmur Gastrointestinal: Normal Bowel Sounds, No Organomegaly, No Pulsatile Mass, Non Tender Rectal: Normal Exam, Normal Rectal Tone, Heme Negative Stool Extremity: Normal Capillary Refill, Normal Inspection, Normal Range of Motion, Non Tender Neurologic/Psychiatric: Other (Suicidal thoughts) Skin: Normal Color, Warm/Dry Progress/Results/Core Measures Suspected Sepsis SIRS Temperature: Pulse: 94 Respiratory Rate: 16 Laboratory Tests 02/13/22 16:44: White Blood Count 10.2 Blood Pressure 137 /83 Mean: 101 Laboratory Tests 02/13/22 16:44: Creatinine 0.93, Platelet Count 198, Total Bilirubin 0.8 Results/Orders Lab Results Laboratory Tests Test 02/13/22 16:22 02/13/22 16:44 02/13/22 16:51 Range/Units Influenza Type A (RT-PCR) Not Detected Not Detecte Influenza Type B (RT-PCR) Not Detected Not Detecte SARS-CoV-2 RNA (RT-PCR) Not Detected Not Detecte White Blood Count 10.2 4.3-11.0 10^3/uL Red Blood Count 5.22 4.30-5.52 10^6/uL Hemoglobin 15.8 13.3-17.7 g/dL Hematocrit 46 40-54 % Mean Corpuscular Volume 87 80-99 fL Mean Corpuscular Hemoglobin 30 25-34 pg Mean Corpuscular Hemoglobin Concent 35 32-36 g/dL Red Cell Distribution Width 13.0 10.0-14.5 % Platelet Count 198 130-400 10^3/uL Mean Platelet Volume 12.3 H 9.0-12.2 fL Immature Granulocyte % (Auto) 1 % Neutrophils (%) (Auto) 55 42-75 % Lymphocytes (%) (Auto) 31 12-44 % Monocytes (%) (Auto) 7 0-12 % Eosinophils (%) (Auto) 6 0-10 % Basophils (%) (Auto) 1 0-10 % Neutrophils # (Auto) 5.6 1.8-7.8 10^3/uL Lymphocytes # (Auto) 3.1 1.0-4.0 10^3/uL Monocytes # (Auto) 0.7 0.0-1.0 10^3/uL Eosinophils # (Auto) 0.7 H 0.0-0.3 10^3/uL Basophils # (Auto) 0.1 0.0-0.1 10^3/uL Immature Granulocyte # (Auto) 0.1 0.0-0.1 10^3/uL Sodium Level 141 135-145 MMOL/L Potassium Level 3.6 3.6-5.0 MMOL/L Chloride Level 106 98-107 MMOL/L Carbon Dioxide Level 24 21-32 MMOL/L Anion Gap 11 5-14 MMOL/L Blood Urea Nitrogen 8 7-18 MG/DL Creatinine 0.93 0.60-1.30 MG/DL Estimat Glomerular Filtration Rate 119 BUN/Creatinine Ratio 9 Glucose Level 100 70-105 MG/DL Calcium Level 9.7 8.5-10.1 MG/DL Corrected Calcium 8.5-10.1 MG/DL Total Bilirubin 0.8 0.1-1.0 MG/DL Aspartate Amino Transf (AST/SGOT) 34 5-34 U/L Alanine Aminotransferase (ALT/SGPT) 61 H 0-55 U/L Alkaline Phosphatase 66 40-136 U/L Total Protein 7.3 6.4-8.2 GM/DL Albumin 4.6 H 3.2-4.5 GM/DL Salicylates Level < 5.0 L 5.0-20.0 MG/DL Acetaminophen Level < 10 L 10-30 UG/ML Serum Alcohol < 10 <10 MG/DL Urine Color YELLOW Urine Clarity CLEAR Urine pH 5.5 5-9 Urine Specific [place] >=1.030 1.016-1.022 Urine Protein NEGATIVE NEGATIVE Urine Glucose (UA) NEGATIVE NEGATIVE Urine Ketones NEGATIVE NEGATIVE Urine Nitrite NEGATIVE NEGATIVE Urine Bilirubin NEGATIVE NEGATIVE Urine Urobilinogen 0.2 < = 1.0 MG/DL Urine Leukocyte Esterase NEGATIVE NEGATIVE Urine RBC (Auto) NEGATIVE NEGATIVE Urine RBC NONE /HPF Urine WBC 0-2 /HPF Urine Squamous Epithelial Cells RARE /HPF Urine Crystals NONE /LPF Urine Bacteria TRACE /HPF Urine Casts NONE /LPF Urine Mucus SMALL H /LPF Urine Culture Indicated NO Urine Opiates Screen POSITIVE H NEGATIVE Urine Oxycodone Screen NEGATIVE NEGATIVE Urine Methadone Screen NEGATIVE NEGATIVE Urine Propoxyphene Screen NEGATIVE NEGATIVE Urine Barbiturates Screen NEGATIVE NEGATIVE Ur Tricyclic Antidepressants Screen NEGATIVE NEGATIVE Urine Phencyclidine Screen NEGATIVE NEGATIVE Urine Amphetamines Screen NEGATIVE NEGATIVE Urine Methamphetamines Screen NEGATIVE NEGATIVE Urine Benzodiazepines Screen POSITIVE H NEGATIVE Urine Cocaine Screen NEGATIVE NEGATIVE Urine Cannabinoids Screen POSITIVE H NEGATIVE My Orders Orders - SID TEMPLE Ekg Tracing (02/13/22 16:26) Ua Culture If Indicated (02/13/22 16:32) Cbc With Automated Diff (02/13/22 16:32) Comprehensive Metabolic Panel (02/13/22 16:32) Alcohol (02/13/22 16:32) Drug Screen Stat (Urine) (02/13/22 16:32) Acetaminophen (02/13/22 16:32) Salicylate (02/13/22 16:32) Ekg Tracing (02/13/22 16:32) Covid 19 Inhouse Test (02/13/22 16:32) Influenza A And B By Pcr (02/13/22 16:32) Vital Signs/I&O 02/13/22 15:54 Temp 36.8 Pulse 94 Resp 16 B/P (MAP) 137/83 (101) Pulse Ox 97 O2 Delivery Room Air Capillary Refill : Less Than 3 Seconds Blood Pressure Mean: 101 Departure Communication (PCP) Patient with increased depression with suicidal thoughts. Currently on Vistaril. Not able to afford Latuda. Patient is calm and cooperative. Denies of any homicidal thoughts. No hallucinations reports marijuana use. Patient appears well and nontoxic. Patient is medically cleared. Patient was evaluated by behavioral health. They agreed with a safety plan with discharge home. We will follow-up with his therapist and psychiatrist for further evaluation. Patient was not requesting inpatient at this time was provided outpatient resources. Patient has no access to guns. Patient feels safe to return at home. Significant other at bedside agrees with this plan of action. If any worsening symptoms recommend calling PD or returning back to the ED Impression Primary Impression: Depression Additional Impression: Suicidal ideation Disposition: 01 HOME, SELF-CARE Condition: Stable Departure-Patient Inst. Decision time for Depature: 20:55 Referrals: NO,LOCAL PHYSICIAN (PCP/Family) Primary Care Physician Patient Instructions: Suicide Prevention Add. Discharge Instructions: If any worsening symptoms return back to ED for further evaluation. Follow-up with your psychiatrist for further evaluation. All discharge instructions reviewed with patient and/or family. Voiced understanding. SID TEMPLE Feb 13, 2022 17:49
[2022-02-13 21:05] VITALS: BP 142/80
== END 2022-02-13 21:07 | disposition home or self-care (01) ==
LOC: EDUNIT# 15:27 → ER 15:30
DX: F32.A Depression, unspecified (principal); R45.851 Suicidal ideations; E66.9 Obesity, unspecified; F17.210 Nicotine dependence, cigarettes, uncomplicated; Z91.120 Patient's intentional underdosing of medication regimen due to financial hardship; Z91.51 Personal history of suicidal behavior; Z68.41 Body mass index [BMI] 40.0-44.9, adult; Z79.899 Other long term (current) drug therapy; Z20.822 Contact with and (suspected) exposure to COVID-19
CPT/HCPCS: 80053; 80306; 81000; 85025; 87636; 93005; 99283; G0480 ×3; 36415; 80320; 80329

== ENCOUNTER 2022-05-13 21:57 | Emergency (ER) | payer SELFPAY ==
[~2022-05-13] VITALS: Ht 170 cm; Wt 115.0 kg
[2022-05-13] MEDS ORDERED: ONDANSETRON 4 MG/2 ML (SDV) Z0FRAN IVP ONE (22:45)
--- NOTE | 2022-05-13 22:59 | ED GI ---
General Chief Complaint: Abdominal/GI Problems Stated Complaint: VOMITING BLOOD - ABD PAIN Nursing Triage Note: Patient states approximately one hour ago he began vomiting. He advised approximately 3x and the last time that he vomited bright red blood. Source of Information: Patient Exam Limitations: No Limitations (ELYSSA ALONSO) History of Present Illness Date Seen by Provider: May 13, 2022 Time Seen by Provider: 22:45 Initial Comments This is a 22 y/o male who presents with hematemesis. Patient states about an hour prior to arrival he was eating a late dinner of toast with pizza toppings and then experienced nausea and vomiting x3. He states when vomiting for the third time his emesis was bright red with a possible large clot. Patient denies coffee-ground emesis. Patient reports associated symptoms of right-sided abdominal and epigastric pain. Patient states he currently feels tired but denies nausea. Timing/Duration: 1 Hour Severity/Quality: Mild Location: Epigastric Radiation: RUQ Activities at Onset: Other (eating dinner) Associated Symptoms: Nausea/Vomiting (ELYSSA ALONSO) Allergies and Home Medications Allergies Coded Allergies: No Known Drug Allergies (Unverified , 06/12/19) Patient Home Medication List Dicyclomine HCl (Dicyclomine HCl) 20 Mg Tablet, 20 MG PO Q6H Prescribed by: MARCIA MAYEN on 06/23/202030 Escitalopram Oxalate (Escitalopram Oxalate) 10 Mg Tablet, (Reported) Entered as Reported by: JULIUS POOLE on 05/09/18 160 Hyoscyamine Sulfate (Levsin-Sl) 0.125 Mg Tab.subl, 0.25 MG SL Q4H Prescribed by: MARCIA MAYEN on 06/23/202030 Lactobacillus Acidophilus (Acidophilus) 1 Each Capsule, 2 EACH PO QID Prescribed by: MARCIA MAYEN on 06/12/19 0505 Lamotrigine (Lamotrigine) 100 Mg Tablet, (Reported) Entered as Reported by: JULIUS POOLE on 05/09/18 160 Ondansetron (Ondansetron Odt) 4 Mg Tab.rapdis, 4 MG PO Q6H PRN for NAUSEA/VOMITING-1ST LINE Prescribed by: VU DOSHI on 09/18/181913 Ondansetron (Ondansetron Odt) 4 Mg Tab.rapdis, 4 MG PO Q4H Prescribed by: MARCIA MAYEN on 06/12/19 0505 Ondansetron (Ondansetron Odt) 4 Mg Tab.rapdis, 4 MG PO Q4H Prescribed by: MARCIA MAYEN on 06/23/202030 Ondansetron (Ondansetron Odt) 4 Mg Tab.rapdis, 4 MG SL Q4H PRN for NAUSEA/VOMITING Prescribed by: KIRSTIN SEGOVIA on 05/14/2239 Pantoprazole Sodium (Protonix) 40 Mg Tablet.dr, 40 MG PO DAILY Prescribed by: MARCIA MAYEN on 06/23/202031 Pantoprazole Sodium (Protonix) 40 Mg Tablet.dr, 40 MG PO DAILY Prescribed by: KIRSTIN SEGOVIA on 05/14/2239 Review of Systems Review of Systems Constitutional: no symptoms reported EENTM: No Symptoms Reported Respiratory: No Symptoms Reported Cardiovascular: No Symptoms Reported Gastrointestinal: Abdominal Pain (epigastric and RUQ), Nausea, Vomiting (hematemesis) Genitourinary: No Symptoms Reported Musculoskeletal: no symptoms reported Skin: no symptoms reported Psychiatric/Neurological: No Symptoms Reported Endocrine: No Symptoms Reported Hematologic/Lymphatic: No Symptoms Reported (ELYSSA ALONSO) All Other Systems Reviewed Negative Unless Noted: Yes (ELSYSA ALONSO) Past Tdmqrxn-Kulpga-Axflla Hx Patient Social History Tobacco Use?: Yes Tobacco type used: Cigarettes Smoking Status: Current Everyday Smoker E-Cig or Vaping type used: Marijuana Substance use?: Yes Substance type: Marijuana Substance frequency: Daily Alcohol Use?: Yes Alcohol type: Hard Liquor Alcohol Frequency: Once in a while (ELYSSA ALONSO) Immunizations Up To Date PED Vaccines UTD: Yes First/Initial COVID19 Vaccinat: 2020 (ELYSSA ALONSO) Seasonal Allergies Seasonal Allergies: Yes (ELYSSA ALONSO) Past Medical History Surgery/Hospitalization HX: BIPOLAR DEPRESSION, ANXIETY Surgeries: Yes (RIGHT HYDROCOELE/HERNIA REPAIR SMALL CHILD) Abdominal Respiratory: Yes (ASTHMA CHILD) Asthma Cardiac: No Neurological: No Genitourinary: No Gastrointestinal: Yes (RIGHT HYDROCOELE/HERNIA REPAIR SMALL CHILD) Abdominal Hernia Musculoskeletal: No Endocrine: Yes (HYPOGLYCEMIA; OBESITY) Diabetes, Non-Insulin dep (Type 2 Diabetes Mellitus) HEENT: No Cancer: No Psychosocial: Yes Anxiety, Bipolar, Depression Integumentary: No Blood Disorders: No (ELYSSA ALONSO) Family Medical History No Pertinent Family Hx (ELYSSA ALONSO) Physical Exam Vital Signs Vital Signs - First Documented 05/13/22 22:12 Temp 37.1 Pulse 71 Resp 16 B/P (MAP) 122/76 (91) Pulse Ox 95 O2 Delivery Room Air (KIRSTIN SANDOVAL MD) Vital Signs Capillary Refill : Less Than 3 Seconds (ELYSSA ALONSO) Height/Weight/BMI Height: 5'7.00" Weight: 240lbs. oz. 108.937927rb; 39.00 BMI Method:Stated General Appearance: WD/WN, no apparent distress Respiratory: lungs clear, normal breath sounds, no respiratory distress, no accessory muscle use Cardiovascular: regular rate, rhythm Gastrointestinal: normal bowel sounds, soft, tenderness (epigastric tenderness with palpation) Neurologic/Psychiatric: alert, normal mood/affect, oriented x 3 Skin: normal color, warm/dry Lymphatic: no adenopathy Exam Comments Exam performed by Dr. Sandoval and dictated to me (ELYSSA ALONSO) Progress/Results/Core Measures Results/Orders Lab Results Laboratory Tests Test 05/13/22 23:11 Range/Units White Blood Count 13.8 H 4.3-11.0 10^3/uL Red Blood Count 5.28 4.30-5.52 10^6/uL Hemoglobin 16.1 13.3-17.7 g/dL Hematocrit 47 40-54 % Mean Corpuscular Volume 88 80-99 fL Mean Corpuscular Hemoglobin 31 25-34 pg Mean Corpuscular Hemoglobin Concent 35 32-36 g/dL Red Cell Distribution Width 13.5 10.0-14.5 % Platelet Count 203 130-400 10^3/uL Mean Platelet Volume 12.4 H 9.0-12.2 fL Immature Granulocyte % (Auto) 0 % Neutrophils (%) (Auto) 67 42-75 % Lymphocytes (%) (Auto) 21 12-44 % Monocytes (%) (Auto) 7 0-12 % Eosinophils (%) (Auto) 4 0-10 % Basophils (%) (Auto) 1 0-10 % Neutrophils # (Auto) 9.2 H 1.8-7.8 10^3/uL Lymphocytes # (Auto) 2.9 1.0-4.0 10^3/uL Monocytes # (Auto) 0.9 0.0-1.0 10^3/uL Eosinophils # (Auto) 0.6 H 0.0-0.3 10^3/uL Basophils # (Auto) 0.1 0.0-0.1 10^3/uL Immature Granulocyte # (Auto) 0.1 0.0-0.1 10^3/uL Prothrombin Time 13.6 12.2-14.7 SEC INR Comment 1.0 0.8-1.4 Activated Partial Thromboplast Time 31 24-35 SEC Sodium Level 139 135-145 MMOL/L Potassium Level 4.1 3.6-5.0 MMOL/L Chloride Level 106 98-107 MMOL/L Carbon Dioxide Level 24 21-32 MMOL/L Anion Gap 9 5-14 MMOL/L Blood Urea Nitrogen 7 7-18 MG/DL Creatinine 1.17 0.60-1.30 MG/DL Estimat Glomerular Filtration Rate 90 BUN/Creatinine Ratio 6 Glucose Level 96 70-105 MG/DL Calcium Level 9.4 8.5-10.1 MG/DL Corrected Calcium 8.5-10.1 MG/DL Total Bilirubin 0.6 0.1-1.0 MG/DL Aspartate Amino Transf (AST/SGOT) 25 5-34 U/L Alanine Aminotransferase (ALT/SGPT) 33 0-55 U/L Alkaline Phosphatase 67 40-136 U/L Total Protein 7.7 6.4-8.2 GM/DL Albumin 4.7 H 3.2-4.5 GM/DL Lipase 319 H 8-78 U/L Serum Alcohol < 10 <10 MG/DL (KIRSTIN SANDOVAL MD) My Orders Orders - KIRSTIN SANDOVAL MD Ondansetron Injection (Zofran Injectio (05/13/22 22:45) Ed Iv/Invasive Line Start (05/13/22 22:38) Alcohol (05/13/22 22:38) Cbc With Automated Diff (05/13/22 22:38) Comprehensive Metabolic Panel (05/13/22 22:38) Lipase (05/13/22 22:38) Protime With Inr (05/13/22 22:38) Partial Thromboplastin Time (05/13/22 22:38) Pantoprazole Injection (Protonix Injecti (05/13/22 23:00) Pantoprazole Injection (Protonix Injecti (05/13/22 23:21) (KIRSTIN SANDOVAL MD) Medications Given in ED Current Medications Medications Dose Ordered Sig/Christiana Route Start Time Stop Time Status Last Admin Dose Admin Ondansetron HCl 8 mg ONCE ONCE IVP 05/13/22 22:45 05/13/22 22:46 DC 05/13/22 23:16 8 MG Pantoprazole 80 mg ONCE ONCE IV 05/13/22 23:00 05/13/22 23:01 DC 05/13/22 23:23 80 MG (KIRSTIN SANDOVAL MD) Vital Signs/I&O 05/13/22 22:12 Temp 37.1 Pulse 71 Resp 16 B/P (MAP) 122/76 (91) Pulse Ox 95 O2 Delivery Room Air (KIRSTIN SANDOVAL MD) Blood Pressure Mean: 91 Departure Impression Primary Impression: Acute pancreatitis Qualified Codes: K85.90 - Acute pancreatitis without necrosis or infection, unspecified Additional Impressions: Hematemesis Qualified Codes: K92.0 - Hematemesis Epigastric pain Disposition: HOME, SELF-CARE Condition: Improved Departure-Patient Inst. Decision time for Depature: 00:34 (KIRSTIN SANDOVAL MD) Referrals: [facility] (PCP/Family) Primary Care Physician Patient Instructions: Acute Pancreatitis, Gastrointestinal Bleeding (DC) Add. Discharge Instructions: Adhere to a noncarbonated clear liquid diet for a minimum of 24 hours. Then gradually advance your diet with small quantities of bland food as tolerated. Avoid oily, fatty, or greasy foods when resuming solid food. Start taking Protonix (pantoprazole) as prescribed. If this is cost prohibitive, you may substitute omeprazole 20 mg twice daily purchased [id number]. Continue antiacid therapy until otherwise directed by your doctor. Call the clinic tomorrow to schedule a follow-up appointment. You should have your lipase labs checked again by midweek. You should have a follow-up appointment as soon as possible, preferably within 1 week. At this appointment, discuss further treatment and referral for endoscopy. You may use Zofran (ondansetron) as prescribed for nausea and vomiting. Avoid the following: Eating large meals, eating close to bedtime, caffeine, carbonation, citrus fruits and juices, tomato products, mints, chocolate, spicy foods, fatty/greasy foods, NSAID medications such as ibuprofen or naproxen, alcohol, tobacco, marijuana, or anything else you know irritates your stomach. Expect to have some dark tarry or greenish colored stools for the next few days as you evacuate any remnant blood in your GI tract. Return to the emergency room if you have worsening symptoms which include recurrent bouts of vomiting blood, escalating abdominal pain, fever, etc. All discharge instructions reviewed with patient and/or family. Voiced understanding. Scripts Ondansetron (Ondansetron Odt) 4 Mg Tab.rapdis 4 MG SL Q4H PRN for NAUSEA/VOMITING, #10 TAB Prov: KIRSTIN SANDOVAL MD 05/14/22 Pantoprazole Sodium (Protonix) 40 Mg Tablet.dr 40 MG PO DAILY, #30 TAB Prov: KIRSTIN SANDOVAL MD 05/14/22 ELYSSA ALONSO May 13, 2022 22:59 KIRSTIN SANDOVAL MD May 14, 2022 00:39
[2022-05-13] MEDS ORDERED: PANTOPRAZOLE 40 MG (PROTONIX) VIAL IV ONE (23:00)
[2022-05-13] MEDS ORDERED: PANTOPRAZOLE 40 MG (PROTONIX) VIAL ONE (23:21)
[2022-05-13 23:26] LABS: BASOPHILS # (AUTO) 0.1 10^3/uL (0.0-0.1); BASOPHILS % (AUTO) 1 % (0-10); EOSINOPHILS # (AUTO) 0.6 10^3/uL (0.0-0.3); EOSINOPHILS % (AUTO) 4 % (0-10); HEMATOCRIT 47 % (40-54); HEMOGLOBIN 16.1 g/dL (13.3-17.7); LYMPHOCYTES # (AUTO) 2.9 10^3/uL (1.0-4.0); LYMPHOCYTES % (AUTO) 21 % (12-44); MEAN CORPUSCULAR HEMOGLOBIN 31 pg (25-34); MEAN CORPUSCULAR HGB CONC 35 g/dL (32-36); MEAN CORPUSCULAR VOLUME 88 fL (80-99); MEAN PLATELET VOLUME 12.4 fL (9.0-12.2); MONOCYTES # (AUTO) 0.9 10^3/uL (0.0-1.0); MONOCYTES % (AUTO) 7 % (0-12); NEUTROPHILS # (AUTO) 9.2 10^3/uL (1.8-7.8); NEUTROPHILS % (AUTO) 67 % (42-75); PLATELET COUNT 203 10^3/uL (130-400); WHITE BLOOD COUNT 13.8 10^3/uL (4.3-11.0)
[2022-05-13 23:33] LABS: ALBUMIN 4.7 GM/DL (3.2-4.5); CHLORIDE 106 MMOL/L (98-107); POTASSIUM 4.1 MMOL/L (3.6-5.0); SODIUM 139 MMOL/L (135-145)
[2022-05-13 23:34] LABS: CALCIUM 9.4 MG/DL (8.5-10.1)
[2022-05-13 23:35] LABS: GLUCOSE 96 MG/DL (70-105); TOTAL PROTEIN 7.7 GM/DL (6.4-8.2)
[2022-05-13 23:36] LABS: CARBON DIOXIDE 24 MMOL/L (21-32)
[2022-05-13 23:37] LABS: BILIRUBIN,TOTAL 0.6 MG/DL (0.1-1.0)
[2022-05-13 23:38] LABS: ALKALINE PHOSPHATASE 67 U/L (40-136)
[2022-05-13 23:39] LABS: CREATININE SERUM 1.17 MG/DL (0.60-1.30); GFR ESTIMATED 90
[2022-05-13 23:40] LABS: BUN/CREATININE RATIO 6
[2022-05-13 23:42] LABS: ALANINE AMINOTRANSFERASE 33 U/L (0-55); LIPASE 319 U/L (8-78)
[2022-05-13 23:47] LABS: PROTHROMBIN TIME PATIENT 13.6 SEC (12.2-14.7)
[2022-05-14] MEDS ORDERED: ONDA4TAB11 SL (00:40)
[2022-05-14] MEDS ORDERED: PANT40TA2 PO (00:40)
[2022-05-14 00:53] VITALS: BP 122/76
== END 2022-05-14 01:01 | disposition home or self-care (01) ==
LOC: EDUNIT# 21:57 → ER 21:59
DX: K85.90 Acute pancreatitis without necrosis or infection, unspecified (principal); K92.0 Hematemesis; F17.210 Nicotine dependence, cigarettes, uncomplicated; Z28.311 Partially vaccinated for COVID-19
CPT/HCPCS: 80053; 83690; 85025; 85610; 85730; 99284; G0480; 36415; 80320

== ENCOUNTER → 2022-09-26 | Outpatient (CLI) | payer OTHER ==
[~2022-09-26] MED LIST changes: -DOXY-311 PO; +DOXY-444 PO; +ONDA4TAB11 SL
--- NOTE | 2022-09-26 11:58 | Diagnostic Imaging Report ---
EXAMINATION: Lumbosacral spine 2 or 3 views HISTORY: Back pain COMPARISON: None available. FINDINGS: There is a mild levoconvex scoliosis of the spine. Alignment otherwise maintained with no subluxations appreciated. There are no fractures. Intervertebral spaces maintained. Soft tissues unremarkable. IMPRESSION: 1. Minimal scoliotic deformity with no acute process appreciated. Dictated by: Dictated on workstation # [id number]
--- NOTE | 2022-09-26 18:14 | Diagnostic Imaging Report ---
CLINICAL INDICATION: Patient with knee pain. EXAM: X-ray of the right knee, 2 views. COMPARISON: None. FINDINGS: There is no acute fracture or dislocation. There is no knee effusion. There is no significant bony abnormality. IMPRESSION: Unremarkable x-ray of the right knee. Dictated by: Dictated on workstation # [id number]
== END ==
LOC: RAD 11:02
PROVIDERS: ATTEND Family Medicine
DX: M54.50 Low back pain, unspecified (principal); M25.561 Pain in right knee
CPT/HCPCS: 72100; 73560

== ENCOUNTER 2022-10-26 04:15 | Emergency (ER) | payer SELFPAY ==
[~2022-10-26] VITALS: Ht 170.2 cm; Wt 108.9 kg
[2022-10-26] MEDS ORDERED: ONDANSETRON 4 MG/2 ML (SDV) Z0FRAN IVP ONE (04:30)
[2022-10-26] MEDS ORDERED: NS IV 1000 ML 1,000 ML IV SCH (04:30)
[2022-10-26] MEDS ORDERED: PANTOPRAZOLE 40 MG (PROTONIX) VIAL IV ONE (04:45)
[2022-10-26 04:46] LABS: BASOPHILS # (AUTO) 0.1 10^3/uL (0.0-0.1); BASOPHILS % (AUTO) 1 % (0-10); EOSINOPHILS # (AUTO) 0.4 10^3/uL (0.0-0.3); EOSINOPHILS % (AUTO) 3 % (0-10); HEMATOCRIT 44 % (40-54); HEMOGLOBIN 15.6 g/dL (13.3-17.7); LYMPHOCYTES # (AUTO) 3.4 10^3/uL (1.0-4.0); LYMPHOCYTES % (AUTO) 27 % (12-44); MEAN CORPUSCULAR HEMOGLOBIN 31 pg (25-34); MEAN CORPUSCULAR HGB CONC 35 g/dL (32-36); MEAN CORPUSCULAR VOLUME 88 fL (80-99); MEAN PLATELET VOLUME 11.9 fL (9.0-12.2); MONOCYTES # (AUTO) 0.9 10^3/uL (0.0-1.0); MONOCYTES % (AUTO) 7 % (0-12); NEUTROPHILS # (AUTO) 7.7 10^3/uL (1.8-7.8); NEUTROPHILS % (AUTO) 62 % (42-75); PLATELET COUNT 168 10^3/uL (130-400); WHITE BLOOD COUNT 12.5 10^3/uL (4.3-11.0)
--- NOTE | 2022-10-26 04:47 | ED GI ---
General Chief Complaint: Abdominal/GI Problems Stated Complaint: PT STS VOMITING BLOOD,ABD PAIN Nursing Triage Note: PT AMB TO RM 6 W C/O BRIGHT RED BLOOD IN VOMIT 20 MINS AFTER EATING [employer] AT APPROX 0330 THIS AM. PT REPORTS DULL RUQ ACHE W ONSET OF VOMITING, DIARRHEA SX YESTERDAY AM. PT A&OX4. Source of Information: Patient History of Present Illness Date Seen by Provider: Oct 26, 2022 Time Seen by Provider: 04:25 Initial Comments PT ARRIVES VIA POV FROM HOME WITH FEMALE PT STATES 20 MINUTES PRIOR TO ARRIVAL HE VOMITED BLOOD HE STATES THAT HE ATE A PIZZA AT 10 PM TONIGHT, AND FELT FINE. HE HAD NOT HAD ANYTHING TO EAT ALL DAY UP TO THAT POINT. HE ATE [employer] ABOUT 45 MINUTES AGO, AND 20 MINUTES LATER, HE STARTED VOMITING-STATES HE VOMITED 4-5 TIMES IN ONE SESSION STATES IT STARTED OUT PINK AND THEN WAS BRIGHT RED. HE IS NOT HAVING NAUSEA NOW AT THE SAME TIME HE BEGAN TO HAVE A DULL ACHE IN RIGHT UPPER ABDOMEN. HE IS NOT HAVING PAIN NOW. HE DID HAVE DIARRHEA X 1 YESTERDAY MORNING. NONE SINCE NO URINARY SYMPTOMS AND VOIDING A NORMAL AMOUNT--LAST VOID 2 HOURS AGO NO FEVER HE HAS BEEN HAVING ONGOING BACK PAIN, WORSE THE LAST COUPLE OF DAYS HE HAS BEEN TAKING NAPROXEN AND TYLENOL FOR THIS, AND THEN THE LAST COUPLE OF DAYS HAS BEEN TAKING HYDROCODONE ( NOT PRESCRIBED TO HIM) STATES HE USED TO DRINK A BOTTLE OF VODKA EVERY NIGHT, AND WHEN HE WAS DRINKING HEAVY, HE HAD PANCREATITIS TWICE. HE ALSO VOMITED UP BLOOD WHEN HE WAS DRINKING ALOT AND HAD PANCREATITIS HE DOES NOT DRINK THAT MUCH ANY MORE. CLAIMS NO ALCOHOL X 1 MONTH HE SMOKES MARIJUANA ON REGULAR BASIS, INCLUDING TONIGHT. HE SMOKES 1 PPD OF CIGARETTES. HE HAS BEEN DX WITH BIPOLAR AND IS ON LATUDA HE HAD A HERNIA SURGERY AT AGE 1 PCP; [facility] [place] Allergies and Home Medications Allergies Coded Allergies: No Known Drug Allergies (Unverified , 06/12/19) Patient Home Medication List Home Medication List Reviewed: Yes Dicyclomine HCl (Dicyclomine HCl) 20 Mg Tablet, 20 MG PO Q6H Prescribed by: MARCIA MAYEN on 06/23/202030 Escitalopram Oxalate (Escitalopram Oxalate) 10 Mg Tablet, (Reported) Entered as Reported by: JULIUS POOLE on 05/09/18 1605 Hyoscyamine Sulfate (Levsin-Sl) 0.125 Mg Tab.subl, 0.25 MG SL Q4H Prescribed by: MARCIA MAYEN on 06/23/202030 Lactobacillus Acidophilus (Acidophilus) 1 Each Capsule, 2 EACH PO QID Prescribed by: MARCIA MAYEN on 06/12/19 050 Lamotrigine (Lamotrigine) 100 Mg Tablet, (Reported) Entered as Reported by: JULIUS POOLE on 05/09/18 160 Ondansetron (Ondansetron Odt) 4 Mg Tab.rapdis, 4 MG PO Q6H PRN for NAUSEA/VOMITING-1ST LINE Prescribed by: VU DOSHI on 09/18/181913 Ondansetron (Ondansetron Odt) 4 Mg Tab.rapdis, 4 MG PO Q4H Prescribed by: MARCIA MAYEN on 06/12/19 050 Ondansetron (Ondansetron Odt) 4 Mg Tab.rapdis, 4 MG PO Q4H Prescribed by: MARCIA MAYEN on 06/23/202030 Ondansetron (Ondansetron Odt) 4 Mg Tab.rapdis, 4 MG SL Q4H PRN for NAUSEA/VOMITING Prescribed by: KIRSTIN SEGOVIA on 05/14/2239 Ondansetron (Ondansetron Odt) 4 Mg Tab.rapdis, 4 MG PO Q4H Prescribed by: MARCIA MAYEN on 10/26/22531 Pantoprazole Sodium (Protonix) 40 Mg Tablet.dr, 40 MG PO DAILY Prescribed by: MARCIA MAYEN on 06/23/202031 Pantoprazole Sodium (Protonix) 40 Mg Tablet.dr, 40 MG PO DAILY Prescribed by: KIRSTIN SEGOVIA on 05/14/2239 Pantoprazole Sodium (Protonix) 40 Mg Tablet.dr, 40 MG PO DAILY Prescribed by: MARCIA MAYEN on 10/26/22531 Review of Systems Review of Systems Constitutional: no symptoms reported EENTM: No Symptoms Reported Respiratory: No Symptoms Reported Cardiovascular: No Symptoms Reported Gastrointestinal: See HPI, Abdominal Pain, Diarrhea, Nausea, Vomiting Genitourinary: No Symptoms Reported Musculoskeletal: see HPI, back pain Skin: no symptoms reported Psychiatric/Neurological: No Symptoms Reported Endocrine: No Symptoms Reported Hematologic/Lymphatic: No Symptoms Reported Past Mjjdwhj-Segbpf-Frxsck Hx Patient Social History Tobacco Use?: Yes Tobacco type used: Cigarettes Smoking Status: Current Everyday Smoker Use of E-Cig and/or Vaping dev: No Substance use?: Yes Substance type: Marijuana Substance frequency: Daily Alcohol Use?: Yes Alcohol type: Hard Liquor Immunizations Up To Date PED Vaccines UTD: Yes Influenza Vaccine Up-to-Date: No; Not Current First/Initial COVID19 Vaccinat: 2020 Second COVID19 Vaccination Aung: 2020 Third COVID19 Vaccination Date: 2020 Seasonal Allergies Seasonal Allergies: Yes Past Medical History Surgery/Hospitalization HX: BIPOLAR DEPRESSION, ANXIETY Surgeries: Yes (RIGHT HYDROCOELE/HERNIA REPAIR SMALL CHILD) Abdominal Respiratory: Yes (ASTHMA CHILD) Asthma Cardiac: No Neurological: No Genitourinary: No Gastrointestinal: Yes (RIGHT HYDROCOELE/HERNIA REPAIR SMALL CHILD) Abdominal Hernia, Pancreatitis Musculoskeletal: No Endocrine: Yes (HYPOGLYCEMIA; OBESITY) Diabetes, Non-Insulin dep HEENT: No Cancer: No Psychosocial: Yes Anxiety, Bipolar, Depression Integumentary: No Blood Disorders: No Family Medical History No Pertinent Family Hx SOCIAL HISTORY: -SMOKES 1 PPD -DRUGS--MARIJUANA ON A REGULAR BASIS -ETOH--HISTORY OF ABUSE/HEAVY USE--A BOTTLE OF VODKA A DAY, STATES HE DOES NOT DRINK THAT MUCH OR DRINK VERY OFTEN ANYMORE, PER PT ON 10/26/22 Physical Exam Vital Signs Vital Signs - First Documented 10/26/22 04:24 Temp 36.8 Pulse 77 Resp 20 B/P (MAP) 122/81 (95) Pulse Ox 98 O2 Delivery Room Air Capillary Refill : Less Than 3 Seconds Height/Weight/BMI Height: 5'7.00" Weight: 240lbs. oz. [id number]; 37.00 BMI Method:Stated General Appearance: WD/WN, no apparent distress, other (SITTING UP, DOES NOT APPEAR ILL OR TO BE IN ANY DISCOMFORT OR DISTRESS) HEENT: PERRL/EOMI; No scleral icterus (R), No scleral icterus (L) Neck: normal inspection Respiratory: normal breath sounds, no respiratory distress, no accessory muscle use Cardiovascular: regular rate, rhythm, no murmur Gastrointestinal: normal bowel sounds, non tender, soft, no organomegaly; No distended, No hernia, No mass Extremities: normal inspection, normal capillary refill Back: normal inspection, no CVA tenderness, no vertebral tenderness Neurologic/Psychiatric: clock mechanic II-XII nml as tested, no motor/sensory deficits, alert, normal mood/affect, oriented x 3 Skin: normal color, warm/dry Progress/Results/Core Measures Results/Orders Lab Results Laboratory Tests Test 10/26/22 04:24 10/26/22 04:35 Range/Units Urine Color ORANGE Urine Clarity CLOUDY Urine pH 6.0 5-9 Urine Specific [place] >=1.030 1.016-1.022 Urine Protein TRACE H NEGATIVE Urine Glucose (UA) NEGATIVE NEGATIVE Urine Ketones NEGATIVE NEGATIVE Urine Nitrite NEGATIVE NEGATIVE Urine Bilirubin NEGATIVE NEGATIVE Urine Urobilinogen 1.0 < = 1.0 MG/DL Urine Leukocyte Esterase NEGATIVE NEGATIVE Urine RBC (Auto) NEGATIVE NEGATIVE Urine RBC NONE /HPF Urine WBC NONE /HPF Urine Crystals NONE /LPF Urine Bacteria TRACE /HPF Urine Casts NONE /LPF Urine Mucus SMALL H /LPF Urine Culture Indicated NO Urine Opiates Screen POSITIVE H NEGATIVE Urine Oxycodone Screen NEGATIVE NEGATIVE Urine Methadone Screen NEGATIVE NEGATIVE Urine Propoxyphene Screen NEGATIVE NEGATIVE Urine Barbiturates Screen NEGATIVE NEGATIVE Ur Tricyclic Antidepressants Screen NEGATIVE NEGATIVE Urine Phencyclidine Screen NEGATIVE NEGATIVE Urine Amphetamines Screen NEGATIVE NEGATIVE Urine Methamphetamines Screen NEGATIVE NEGATIVE Urine Benzodiazepines Screen NEGATIVE NEGATIVE Urine Cocaine Screen NEGATIVE NEGATIVE Urine Cannabinoids Screen POSITIVE H NEGATIVE White Blood Count 12.5 H 4.3-11.0 10^3/uL Red Blood Count 5.03 4.30-5.52 10^6/uL Hemoglobin 15.6 13.3-17.7 g/dL Hematocrit 44 40-54 % Mean Corpuscular Volume 88 80-99 fL Mean Corpuscular Hemoglobin 31 25-34 pg Mean Corpuscular Hemoglobin Concent 35 32-36 g/dL Red Cell Distribution Width 12.7 10.0-14.5 % Platelet Count 168 130-400 10^3/uL Mean Platelet Volume 11.9 9.0-12.2 fL Immature Granulocyte % (Auto) 0 % Neutrophils (%) (Auto) 62 42-75 % Lymphocytes (%) (Auto) 27 12-44 % Monocytes (%) (Auto) 7 0-12 % Eosinophils (%) (Auto) 3 0-10 % Basophils (%) (Auto) 1 0-10 % Neutrophils # (Auto) 7.7 1.8-7.8 10^3/uL Lymphocytes # (Auto) 3.4 1.0-4.0 10^3/uL Monocytes # (Auto) 0.9 0.0-1.0 10^3/uL Eosinophils # (Auto) 0.4 H 0.0-0.3 10^3/uL Basophils # (Auto) 0.1 0.0-0.1 10^3/uL Immature Granulocyte # (Auto) 0.0 0.0-0.1 10^3/uL Prothrombin Time 13.4 12.2-14.7 SEC INR Comment 1.0 0.8-1.4 Activated Partial Thromboplast Time 30 24-35 SEC Sodium Level 139 135-145 MMOL/L Potassium Level 3.2 L 3.6-5.0 MMOL/L Chloride Level 104 98-107 MMOL/L Carbon Dioxide Level 24 21-32 MMOL/L Anion Gap 11 5-14 MMOL/L Blood Urea Nitrogen 10 7-18 MG/DL Creatinine 1.16 0.60-1.30 MG/DL Estimat Glomerular Filtration Rate 91 BUN/Creatinine Ratio 9 Glucose Level 93 70-105 MG/DL Calcium Level 9.6 8.5-10.1 MG/DL Corrected Calcium 8.5-10.1 MG/DL Magnesium Level 1.8 1.6-2.4 MG/DL Total Bilirubin 0.6 0.1-1.0 MG/DL Aspartate Amino Transf (AST/SGOT) 27 5-34 U/L Alanine Aminotransferase (ALT/SGPT) 47 0-55 U/L Alkaline Phosphatase 62 40-136 U/L Total Protein 7.5 6.4-8.2 GM/DL Albumin 4.6 H 3.2-4.5 GM/DL Amylase Level 75 25-125 U/L Lipase 114 H 8-78 U/L Serum Alcohol < 10 <10 MG/DL My Orders Orders - MARCIA MAYEN DO Ed Iv/Invasive Line Start (10/26/22 04:24) Monitor-Rhythm Ecg Trace Only (10/26/22 04:24) Alcohol (10/26/22 04:24) Amylase (10/26/22 04:24) Cbc With Automated Diff (10/26/22 04:24) Comprehensive Metabolic Panel (10/26/22 04:24) Drug Screen Stat (Urine) (10/26/22 04:24) Ua Culture If Indicated (10/26/22 04:24) Ed Iv/Invasive Line Start (10/26/22 04:24) Ns Iv 1000 Ml (Sodium Chloride 0.9%) (10/26/22 04:30) Ondansetron Injection (Zofran Injectio (10/26/22 04:30) Pantoprazole Injection (Protonix Injecti (10/26/22 04:45) Lipase (10/26/22 04:33) Magnesium (10/26/22 04:33) Protime With Inr (10/26/22 04:33) Partial Thromboplastin Time (10/26/22 04:33) Medications Given in ED Current Medications Medications Dose Ordered Sig/Christiana Route Start Time Stop Time Status Last Admin Dose Admin Ondansetron HCl 4 mg ONCE ONCE IVP 10/26/22 04:30 10/26/22 04:31 DC 10/26/22 04:38 4 MG Pantoprazole 40 mg ONCE ONCE IV 10/26/22 04:45 10/26/22 04:46 DC 10/26/22 04:38 40 MG Vital Signs/I&O 10/26/22 10/26/22 04:24 05:47 Temp 36.8 Pulse 77 62 Resp 20 20 B/P (MAP) 122/81 (95) 108/72 Pulse Ox 98 96 O2 Delivery Room Air Room Air Blood Pressure Mean: 95 Progress Progress Note : Progress Note GIVEN: -IV FLUIDS -ZOFRAN -PROTONIX UNEVENTFUL ER STAY PT STATES HE FEELS MUCH BETTER. NO VOMITING OR DIARRHEA OR ABDOMINAL PAIN DURING ER STAY LABS ARE ESSENTIALLY NORMAL, WITH SLIGHTLY LOW K+ OF 3.2 AND SLIGHTLY ELEVATED LIPASE OF 114, AMYLASE IS NORMAL, ARE LIVER FUNCTION TESTS, UA IS CLEAR WITH NO BILIRUBIN. ABDOMEN IS NON-TENDER AND HE IS ASYMPTOMATIC FOR ENTIRE ER STAY. NO EMERGENT CT SCAN IS WARRANTED AT THIS TIME DISCUSSED TEST RESULTS, ANTICIPATED COURSE, SYMPTOMATIC TREATMENT, DIET, MEDICATIONS, ABSTAINING FROM DRUGS ( INCLUDING THC) AND ALCOHOL, NEED FOR FOLLOW UP AND RETURN PRECAUTIONS. ADVISED THAT IF HIS SYMPTOMS PERSISTED, HE MAY NEED TO BE REFERRED FOR ENDOSCOPY, OR HAVE ADDITIONAL OUTPATIENT TESTS . REVIEWED PRIOR RECORDS--ALL ER VISITS, LAST VISIT WAS MAY 2022, FOR THIS SAME COMPLAINT, GAVE SIMILAR STORY. Departure Impression Primary Impression: Nausea & vomiting Additional Impressions: REPORTED HEMATEMESIS MILD PANCREATITIS Marijuana use ILLICIT PRESCRIPTION DRUG USE Disposition: HOME, SELF-CARE Condition: Improved Departure-Patient Inst. Decision time for Depature: 05:28 Referrals: [facility] (PCP/Family) Primary Care Physician Patient Instructions: Nausea and Vomiting, Adult (DC), Pancreatitis (DC) Add. Discharge Instructions: NO ALCOHOL NO DRUGS THAT ARE NOT PRESCRIBED TO YOU NO ASPIRIN, NO IBUPROFEN / MOTRIN / ADVIL, NO ALEVE / NAPROXEN YOU MAY TAKE TYLENOL NEEDED FOR PAIN CLEAR LIQUIDS--WATER, BROTH, JELLO, GATORADE BRATS DIET--BANANAS, RICE, APPLESAUCE, TOAST, SALTINES FOLLOW UP WITH [facility] IN 1-2 DAYS FOR FURTHER CARE, RETURN TO ER IF SYMPTOMS WORSEN All discharge instructions reviewed with patient and/or family. Voiced understanding. Scripts Pantoprazole Sodium (Protonix) 40 Mg Tablet.dr 40 MG PO DAILY, #15 TAB Prov: MARCIA MAYEN DO 10/26/22 Ondansetron (Ondansetron Odt) 4 Mg Tab.rapdis 4 MG PO Q4H for Nausea/Vomiting, #10 TAB Prov: MARCIA MAYEN DO 10/26/22 MARCIA MAYEN DO Oct 26, 2022 04:47
[2022-10-26 04:51] LABS: BILIRUBIN,URINE NEGATIVE (NEGATIVE); CLARITY,URINE CLOUDY; COLOR,URINE ORANGE; GLUCOSE, URINE (UA) NEGATIVE (NEGATIVE); KETONES,URINE NEGATIVE (NEGATIVE); LEUKOCYTE ESTERASE ,URINE NEGATIVE (NEGATIVE); NITRITE,URINE NEGATIVE (NEGATIVE); PROTEIN,URINE TRACE (NEGATIVE)
[2022-10-26 04:55] LABS: ALBUMIN 4.6 GM/DL (3.2-4.5)
[2022-10-26 04:56] LABS: CHLORIDE 104 MMOL/L (98-107); POTASSIUM 3.2 MMOL/L (3.6-5.0); SODIUM 139 MMOL/L (135-145)
[2022-10-26 04:57] LABS: AMYLASE 75 U/L (25-125); CALCIUM 9.6 MG/DL (8.5-10.1)
[2022-10-26 04:58] LABS: GLUCOSE 93 MG/DL (70-105); PROTHROMBIN TIME PATIENT 13.4 SEC (12.2-14.7); TOTAL PROTEIN 7.5 GM/DL (6.4-8.2)
[2022-10-26 04:59] LABS: CARBON DIOXIDE 24 MMOL/L (21-32)
[2022-10-26 04:59] LABS: BACTERIA,URINE TRACE /HPF
[2022-10-26 05:00] LABS: BILIRUBIN,TOTAL 0.6 MG/DL (0.1-1.0)
[2022-10-26 05:02] LABS: ALKALINE PHOSPHATASE 62 U/L (40-136); CREATININE SERUM 1.16 MG/DL (0.60-1.30); GFR ESTIMATED 91
[2022-10-26 05:03] LABS: AMPHETAMINE SCREEN, URINE NEGATIVE (NEGATIVE); BENZODIAZEPINES SCREEN URINE NEGATIVE (NEGATIVE); CANNABINOID SCREEN, URINE POSITIVE (NEGATIVE); COCAINE SCREEN URINE NEGATIVE (NEGATIVE); OPIATE SCREEN URINE POSITIVE (NEGATIVE)
[2022-10-26 05:03] LABS: BUN/CREATININE RATIO 9
[2022-10-26 05:04] LABS: MAGNESIUM 1.8 MG/DL (1.6-2.4)
[2022-10-26 05:04] LABS: BARBITURATE SCREEN URINE NEGATIVE (NEGATIVE); METHADONE STAT NEGATIVE (NEGATIVE); OXYCODONE STAT NEGATIVE (NEGATIVE); PROPOXYPHENE STAT NEGATIVE (NEGATIVE); TRICYCLIC ANTIDEPRESSANTS SCRE NEGATIVE (NEGATIVE)
[2022-10-26 05:05] LABS: ALANINE AMINOTRANSFERASE 47 U/L (0-55)
[2022-10-26 05:06] LABS: LIPASE 114 U/L (8-78)
[2022-10-26] MEDS ORDERED: ONDA4TAB11 PO (05:32)
[2022-10-26] MEDS ORDERED: PANT40TA2 PO (05:32)
[2022-10-26 05:47] VITALS: BP 108/72
== END 2022-10-26 05:47 | disposition home or self-care (01) ==
LOC: EDUNIT# 04:15 → ER 04:19
DX: K92.0 Hematemesis (principal); K85.90 Acute pancreatitis without necrosis or infection, unspecified; F12.90 Cannabis use, unspecified, uncomplicated; E87.6 Hypokalemia; R74.8 Abnormal levels of other serum enzymes; F19.90 Other psychoactive substance use, unspecified, uncomplicated; F17.210 Nicotine dependence, cigarettes, uncomplicated; E66.9 Obesity, unspecified; F31.9 Bipolar disorder, unspecified; Z79.899 Other long term (current) drug therapy; Z98.890 Other specified postprocedural states; Z68.37 Body mass index [BMI] 37.0-37.9, adult
CPT/HCPCS: 80053; 80306; 81000; 82150; 83690; 83735; 85025; 85610; 85730; 93041; 99284; G0480; 36415; 80320